=== PATIENT | female | born 1935 | race Caucasian/White ===

== ENCOUNTER 2017-01-02 16:23 | Observation (INO) | payer MEDICARE, OTHER ==
--- NOTE | 2017-01-02 16:49 | EDM.PDOC ---
ED HPI GENERAL MEDICAL PROBLEM - General Chief Complaint: Gastrointestinal Problem Stated Complaint: BLOOD IN STOOL Time Seen by Provider: 01/02/17 16:48 Source of Information: Reports: Patient History Limitations: Reports: No Limitations - History of Present Illness INITIAL COMMENTS - FREE TEXT/NARRATIVE: 81-year-old female presents to the ED reporting that she's had 4 stools today that have been formed but seemed to have blood mixed within. She notices this more when the stool is in the water of the toilet and blood seems to be coming from the stool. I.e. its mixed in. She reports the blood appears to be more maroon in color than bright red. She's not appreciate any clots. She does have some mild left lower quadrant abdominal discomfort. Questionable whether she had fever or chills last night. She has a history of diverticulitis in his had previous 18 inches of her sigmoid colon resected because of diverticular disease. She has had colonoscopies in the past but not for greater than 5 years. Never had any polyps removed. She does take a baby aspirin daily. She does not take much for Motrin or Aleve for arthritis pain. Denies any heartburn or upper GI symptoms. She gives a history of irritable bowel syndrome and states that she can have no bowel some days and some days have up to 6 or 7 bowel movements. Patient gives a history of mostly diarrhea stools. Those today were formed or semi-formed. 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) - Related Data Allergies Allergy/AdvReac Type Severity Reaction Status Date / Time No Known Allergies Allergy Verified 01/02/17 16:47 Home Meds: Home Meds Aspirin [Low Dose Aspirin EC] 81 mg PO DAILY 11/19/13 [History] Hydrochlorothiazide 12.5 mg PO DAILY 11/19/13 [History] Lactobacillus Acidophilus [Probiotic] 1 cap PO DAILY 11/19/13 [History] Metoprolol Succinate [Toprol XL] 25 mg PO DAILY 11/19/13 [History] Docusate Sodium [Colace] 100 mg PO BID PRN 01/02/17 [History] Past Medical History HEENT History: Reports: Allergic Rhinitis Cardiovascular History: Reports: High Cholesterol, Hypertension Gastrointestinal History: Reports: Chronic Diarrhea, Diverticulosis, Hemorrhoids , Irritable Bowel Syndrome Genitourinary History: Reports: Urinary Incontinence, Other (See Below) Other Genitourinary History: Dribbling 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: Musculoskeletal History: Reports: Arthritis, Back Pain, Chronic, Fracture, Neck Pain, Chronic Other Musculoskeletal History: chronic neck pain Neurological History: Reports: Headaches, Chronic Other Neuro History: LOC with the fall - Infectious Disease History Infectious Disease History: Reports: Chicken Pox, Shingles - Past Surgical History HEENT Surgical History: Reports: Cataract Surgery, Other (See Below) GI Surgical History: Reports: Colonoscopy (But not for greater than 5 years.), Other (See Below) (Patient reports that she had 18 inches of her sigmoid colon resected in the past because of diverticulitis.) Female Surgical History: Reports: Hysterectomy, Other (See Below) (Bladder sling procedure.) Musculoskeletal Surgical History: Reports: Other (See Below) Social & Family History - Family History Family Medical History: Noncontributory - Tobacco Use Smoking Status *Q: Never Smoker Second Hand Smoke Exposure: No - Recreational Drug Use Recreational Drug Use: No Drug Use in Last 12 Months: No - Living Situation & Occupation Living situation: Reports: Occupation: Retired ED ROS GENERAL - Review of Systems Review Of Systems: See Below Constitutional: Denies: Fever, Chills, Malaise, Weakness, Fatigue, Decreased Appetite, Weight Loss HEENT: Reports: No Symptoms Respiratory: Reports: No Symptoms Cardiovascular: Reports: No Symptoms Endocrine: Reports: No Symptoms GI/Abdominal: Reports: Abdominal Pain (Perhaps mild left lower quadrant abdominal discomfort.), Hematochezia, Other (Patient was does watch her diet because of irritable bowel syndrome. She has no problems with heartburn or indigestion.) : Reports: Frequency, Incontinence (Both urge and stress components.) Musculoskeletal: Reports: No Symptoms Skin: Reports: No Symptoms Neurological: Reports: No Symptoms Psychiatric: Reports: No Symptoms Hematologic/Lymphatic: Reports: No Symptoms Immunologic: Reports: No Symptoms ED EXAM, GI/ABD - Physical Exam Exam: See Below Exam Limited By: No Limitations General Appearance: Alert, WD/WN, No Apparent Distress, Other (Mildly pallid in appearance.) Eyes: Bilateral: Pale Conjunctiva (Moderate.) Throat/Mouth: Normal Inspection, Normal Lips, Normal Oropharynx Head: Atraumatic, Normocephalic Neck: Normal Inspection, Supple, Non-Tender, Full Range of Motion. No: Lymphadenopathy (L), Lymphadenopathy (R) Respiratory/Chest: No Respiratory Distress, Lungs Clear, Normal Breath Sounds Cardiovascular: Normal Peripheral Pulses, Regular Rate, Rhythm, No Edema, No Gallop, No Murmur, No Rub GI/Abdominal Exam: Normal Bowel Sounds, Soft, Tender (Mildly tender in the distribution of the sigmoid colon her left lower quadrant.). No: Guarding, Rigid, Rebound Back Exam: Other Extremities: Normal Inspection, Normal Range of Motion, Non-Tender, No Pedal Edema, Normal Capillary Refill, Other (Has decreased color in her peralta hand creases) Neurological: Alert, Oriented, CN II-XII Intact, Normal Cognition Psychiatric: Normal Affect, Normal Mood Skin Exam: Warm, Dry, Intact, Pallor ED ABDOMINAL/GI PROCEDURES - Additional/Other Procedure(s) Procedure(s) (Free Text): Rigid sigmoidoscopy carried out only up to 10 cm. Immediately came in contact with dark black melena stool. Second attempt after cleansing the scope ran into further melena stool at the 10 and 12 cm andi. I could not see anything else. Course - Vital Signs Last Recorded V/S: Last Vital Signs Temp 36.6 C 01/02/17 16:46 Pulse 95 01/02/17 16:46 Resp 18 01/02/17 16:46 BP 152/74 H 01/02/17 16:46 Pulse Ox 95 01/02/17 16:46 - Orders/Labs/Meds Orders: Active Orders 24 hr Category Date Time Status Hemoccult [Fecal Occult Blood Collection] [RC] Care 01/02/17 17:44 Active ASDIRECTED ABO/RH TYPE [BBK] Stat Lab 01/02/17 17:00 Received Guaiac [OCCULT BLOOD DIAGNOSTIC] [OP] Stat Lab 01/02/17 17:40 Uncollected Sodium Chloride 0.9% [Normal Saline] 1,000 ml Med 01/02/17 17:00 Active IV ASDIRECTED Medication Orders Sodium Chloride (Normal Saline) 1,000 mls @ 100 mls/hr IV ASDIRECTED PAULINA Last Admin: 01/02/17 17:09 Dose: 100 mls/hr Labs: Laboratory Tests 01/02/17 01/02/17 01/02/17 Range/Units 17:00 17:00 17:00 WBC 10.30 H (3.98-10.04) K/mm3 RBC 3.46 L (3.98-5.22) M/mm3 Hgb 10.3 L (11.2-15.7) gm/L Hct 31.1 L (34.1-44.9) % MCV 89.9 (79.4-94.8) fl MCH 29.8 (25.6-32.2) pg MCHC 33.1 (32.2-35.5) g/dl RDW Std Deviation 42.3 (36.4-46.3) fL Plt Count 228 (182-369) K/mm3 MPV 9.5 (9.4-12.3) fl Neutrophils % (Manual) 64 H (40-60) % Band Neutrophils % 0 (0-10) % Lymphocytes % (Manual) 28 (20-40) % Atypical Lymphs % 0 % Monocytes % (Manual) 5 (2-10) % Eosinophils % (Manual) 1 (0.7-5.8) % Basophils % (Manual) 2 H (0.1-1.2) Toxic Granulation Few Platelet Estimate Adequate Plt Morphology Comment Normal Anisocytosis 1+ slight Microcytosis 1+ slight RBC Morph Comment Not Reportable PT 10.5 (8.0-13.0) SECONDS INR 0.97 APTT 22 (22-36) SECONDS Sodium 139 (136-145) mEq/L Potassium 3.9 (3.5-5.1) mEq/L Chloride 102 (98-107) mEq/L Carbon Dioxide 29 (21-32) mEq/L Anion Gap 11.9 (5-15) BUN 45 H (7-18) mg/dL Creatinine 1.0 (0.55-1.02) mg/dL Est Cr Clr Drug Dosing 34.30 mL/min Estimated GFR (MDRD) 53 (>60) mL/min BUN/Creatinine Ratio 45.0 H (14-18) Glucose 102 (83-115) mg/dL Calcium 9.6 (8.5-10.1) mg/dL Total Bilirubin 0.4 (0.2-1.0) mg/dL AST 29 (15-37) U/L ALT 27 (14-59) U/L Alkaline Phosphatase 80 (46-116) U/L Total Protein 7.2 (6.4-8.2) g/dl Albumin 3.9 (3.4-5.0) g/dl Globulin 3.3 gm/dL Albumin/Globulin Ratio 1.2 (1-2) H. pylori IgG Antibody (NEGATIVE) 01/02/17 Range/Units 17:00 WBC (3.98-10.04) K/mm3 RBC (3.98-5.22) M/mm3 Hgb (11.2-15.7) gm/L Hct (34.1-44.9) % MCV (79.4-94.8) fl MCH (25.6-32.2) pg MCHC (32.2-35.5) g/dl RDW Std Deviation (36.4-46.3) fL Plt Count (182-369) K/mm3 MPV (9.4-12.3) fl Neutrophils % (Manual) (40-60) % Band Neutrophils % (0-10) % Lymphocytes % (Manual) (20-40) % Atypical Lymphs % % Monocytes % (Manual) (2-10) % Eosinophils % (Manual) (0.7-5.8) % Basophils % (Manual) (0.1-1.2) Toxic Granulation Platelet Estimate Plt Morphology Comment Anisocytosis Microcytosis RBC Morph Comment PT (8.0-13.0) SECONDS INR APTT (22-36) SECONDS Sodium (136-145) mEq/L Potassium (3.5-5.1) mEq/L Chloride (98-107) mEq/L Carbon Dioxide (21-32) mEq/L Anion Gap (5-15) BUN (7-18) mg/dL Creatinine (0.55-1.02) mg/dL Est Cr Clr Drug Dosing mL/min Estimated GFR (MDRD) (>60) mL/min BUN/Creatinine Ratio (14-18) Glucose (83-115) mg/dL Calcium (8.5-10.1) mg/dL Total Bilirubin (0.2-1.0) mg/dL AST (15-37) U/L ALT (14-59) U/L Alkaline Phosphatase (46-116) U/L Total Protein (6.4-8.2) g/dl Albumin (3.4-5.0) g/dl Globulin gm/dL Albumin/Globulin Ratio (1-2) H. pylori IgG Antibody Negative (NEGATIVE) Meds: Medications Generic Name Dose Route Start Last Admin Trade Name Freq PRN Reason Stop Dose Admin Sodium Chloride 1,000 mls @ 100 mls/hr 01/02/17 17:00 01/02/17 17:09 Normal Saline IV 100 mls/hr ASDIRECTED PAULINA Administration Discontinued Medications Generic Name Dose Route Start Last Admin Trade Name Freq PRN Reason Stop Dose Admin Lidocaine HCl 10 ml 01/02/17 17:14 01/02/17 17:21 Xylocaine 2% Jelly MUCMEM 01/02/17 17:15 10 ml ONETIME ONE Administration Lidocaine HCl Confirm 01/02/17 17:19 01/02/17 17:20 Xylocaine 2% Jelly Administered 01/02/17 17:20 Not Given Dose 10 ml .ROUTE .[facility] ONE - Radiology Interpretation Free Text/Narrative:: 81-year-old female presents to the ED for evaluation of 4 stools that she has passed a day but seemed to contain blood. This is noted more when the stool is in the toilet and blood is leaking from the stool itself. It is dark in color suggesting that the bleeding is coming from a higher GI origin in the rectum. She doesn't have any symptoms of dyspepsia. She does take a baby aspirin every day. She has had a history of diverticulitis but doesn't really have any pain. Questionable whether she had a fever last night. He is afebrile at this time. Appetite remains good. On examination she does appear to be mildly anemic with pallor of the lower blood for margins and hand creases. Plan routine labs to be performed type and screen as well. Will obtain consent for rigid sigmoidoscopy. - Re-Assessments/Exams Free Text/Narrative Re-Assessment/Exam: 01/02/17 17:41 rigid sigmoidoscopy carried out and identified dark black melena stool on both occasions. I could get not get farther than 10 cm into the colon before encountering significant amount of melena stool. The colon wall is coated with melena dark black stool therefore the procedure was aborted. Stool was tested and is strongly guaiac positive. 01/02/17 18:01 labs are back. White count is 10.30 with 64% neutrophils and no bands. Hemoglobin is 10.3. Hematocrit is 31.1. MCV is normal at 89.9. Pelvis is normal 220,000. Coags are all normal. Sodium 139 potassium 3.9. BUN is mildly elevated at 45 suggesting an upper GI source of bleeding. Creatinine is 1.0. Liver function and renal function otherwise normal. H. pylori was negative. Patient will require admission to the hospital for monitoring for GI blood loss and assessment of its source. She will require upper and potentially lower GI endoscopy to sort out source of blood loss. Will speak to hospitalist in this regard. 01/02/17 18:[address] Ervin and he has accepted care of this patient. She will therefore be admitted to the hospital. MCG's are being sorted out as to whether she meets observation criteria or inpatient criteria. BP is currently 123/51. Will give her 40 mg of Protonix IV. Departure - Departure Time of Disposition: 18:15 Disposition: Home, Self-Care 01 Condition: Fair Clinical Impression: Gastrointestinal hemorrhage Qualifiers: GI bleed type/associated pathology: melena Qualified Code(s): K92.1 - Melena Anemia Qualifiers: Anemia type: other cause - Discharge Information Forms: ED Department Discharge - My Orders Last 24 Hours: My Active Orders 01/02/17 17:00 ABO/RH TYPE [BBK] Stat Sodium Chloride 0.9% [Normal Saline] 1,000 ml IV ASDIRECTED 01/02/17 17:40 Guaiac [OCCULT BLOOD DIAGNOSTIC] [OP] Stat 01/02/17 17:44 Hemoccult [Fecal Occult Blood Collection] [RC] ASDIRECTED - Assessment/Plan Last 24 Hours: My Active Orders 01/02/17 17:00 ABO/RH TYPE [BBK] Stat Sodium Chloride 0.9% [Normal Saline] 1,000 ml IV ASDIRECTED 01/02/17 17:40 Guaiac [OCCULT BLOOD DIAGNOSTIC] [OP] Stat 01/02/17 17:44 Hemoccult [Fecal Occult Blood Collection] [RC] ASDIRECTED
[2017-01-02] MEDS ORDERED: Sodium Chloride 0.9% 1,000 ML IV SCH (17:00)
[2017-01-02] MEDS ORDERED: Lidocaine 2% Jelly 10 ML Urojet MUCMEM ONE (17:14)
[2017-01-02] MEDS ORDERED: Lidocaine 2% Jelly 10 ML Urojet ONE (17:19)
[2017-01-02] MEDS ORDERED: Pantoprazole 40 MG Vial IVPUSH ONE (18:14)
--- NOTE | 2017-01-02 18:45 | PCM.HP ---
H&P History of Present Illness - General Date of Service: 01/02/17 Admit Problem/Dx: Admission Diagnosis/Problem Admission Diagnosis/Problem Gastrointestinal hemorrhage with melena Source of Information: Patient, Family, Old Records, Provider, RN Notes Reviewed , Significant Other History Limitations: Reports: No Limitations - History of Present Illness Initial Comments - Free Text/Narative: This is an 81 year old elderly white female with past medical history of hypertension hyperlipidemia, allergic rhinitis, chronic diarrhea, diverticulosis , hemorrhoids, irritable bowel syndrome, urinary frequency, urinary incontinence , DJD/osteoarthritis, chronic neck pain, chronic headaches, who presents to the emergency department with complaints of black tarry stools mixed with blood. She denies any previous history in the past. She denies any mucus or blood clots. She denies having nausea or vomiting. No fever or chills. Patient carries a history of diverticulosis in which she underwent colonic resection in the past. She has not had any issues with her bowel in the past except for chronic diarrhea. Her last endoscopy is within the last 5 years. Patient is not on anticoagulation but takes low-dose aspirin. She denies taking NSAIDs for her chronic arthritis. She denies any history of gastritis, PUD, or heartburn. Her initial workup in emergency department shows a CBC remarkable for WBC of 10.30, RBC of 3.46, hemoglobin 10.3, and hematocrit of 31.1. Her chemistry is fairly unremarkable. Her H pylori screening is negative. Patient is being admitted for GI bleed with melena. She is DNR/DNI. - Related Data Allergies/Adverse Reactions: Allergies Allergy/AdvReac Type Severity Reaction Status Date / Time No Known Allergies Allergy Verified 01/02/17 16:47 Home Medications: Home Meds Aspirin [Low Dose Aspirin EC] 81 mg PO DAILY 11/19/13 [History] Hydrochlorothiazide 12.5 mg PO DAILY 11/19/13 [History] Lactobacillus Acidophilus [Probiotic] 1 cap PO DAILY 11/19/13 [History] Metoprolol Succinate [Toprol XL] 25 mg PO DAILY 11/19/13 [History] Docusate Sodium [Colace] 100 mg PO BID PRN 01/02/17 [History] Past Medical History HEENT History: Reports: Allergic Rhinitis Cardiovascular History: Reports: High Cholesterol, Hypertension Gastrointestinal History: Reports: Chronic Diarrhea, Diverticulosis, Hemorrhoids , Irritable Bowel Syndrome Genitourinary History: Reports: Urinary Incontinence, Other (See Below) Other Genitourinary History: 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: Musculoskeletal History: Reports: Arthritis, Back Pain, Chronic, Fracture, Neck Pain, Chronic Other Musculoskeletal History: chronic neck pain Neurological History: Reports: Headaches, Chronic Other Neuro History: LOC with the fall - Infectious Disease History Infectious Disease History: Reports: Chicken Pox, Shingles - Past Surgical History HEENT Surgical History: Reports: Cataract Surgery, Other (See Below) GI Surgical History: Reports: Colonoscopy (But not for greater than 5 years.), Other (See Below) (Patient reports that she had 18 inches of her sigmoid colon resected in the past because of diverticulitis.) Female Surgical History: Reports: Hysterectomy, Other (See Below) (Bladder sling procedure.) Musculoskeletal Surgical History: Reports: Other (See Below) Social & Family History - Family History Family Medical History: Noncontributory - Tobacco Use Smoking Status *Q: Never Smoker Second Hand Smoke Exposure: No - Caffeine Use Caffeine Use: Reports: Coffee - Recreational Drug Use Recreational Drug Use: No Drug Use in Last 12 Months: No - Living Situation & Occupation Living situation: Reports: Occupation: Retired H&P Review of Systems - Review of Systems: Review Of Systems: See Below General: Denies: Fever, Chills, Malaise, Weakness, Fatigue, Decreased Appetite, Weight Loss HEENT: Reports: No Symptoms Pulmonary: Denies: Shortness of Breath Cardiovascular: Denies: Chest Pain Gastrointestinal: Reports: Black Stool, Hematochezia, Melena. Denies: Abdominal Pain, Anorexia, Constipation, Decreased Appetite, Distension, Hematemesis, Mucous in Stool, Nausea, Vomiting Genitourinary: Reports: Frequency, Incontinence Musculoskeletal: Reports: Neck Pain Skin: Denies: Cyanosis, Jaundice, Pallor, Bruising, Rash, Erythema, Change in Color Psychiatric: Denies: Depression, Anxiety, Hallucinations, Suicidal Ideation, Homicidal Ideation Neurological: Reports: Gait Disturbance. Denies: Confusion, Difficulty Walking , Weakness Hematologic/Lymphatic: Reports: No Symptoms Immunologic: Reports: No Symptoms Exam - Exam Exam: See Below - Vital Signs Vital Signs: Last Vital Signs Temp 36.6 C 01/02/17 16:46 Pulse 95 01/02/17 16:46 Resp 18 01/02/17 16:46 BP 152/74 H 01/02/17 16:46 Pulse Ox 95 01/02/17 16:46 Weight: 57.153 kg - Exam General: Alert, Oriented, Cooperative, Mild Distress HEENT: Conjunctiva Clear, EACs Clear, EOMI, Hearing Intact, Mucosa Moist & [place] , Nares Patent, Normal Nasal Septum, Posterior Pharynx Clear, Pupils Equal, Pupils Reactive Neck: Supple, Trachea Midline, +2 Carotid Pulse wo Bruit, Full Range of Motion Lungs: Clear to Auscultation, Normal Respiratory Effort Cardiovascular: Regular Rate, Regular Rhythm GI/Abdominal Exam: Normal Bowel Sounds, Soft, Non-Tender, No Organomegaly, No Distention, No Abnormal Bruit, No Mass (Female) Exam: Deferred Rectal (Female) Exam: Deferred Back Exam: Normal Inspection, Decreased Range of Motion Extremities: Normal Inspection, Normal Range of Motion, Non-Tender, No Pedal Edema, Normal Capillary Refill Peripheral Pulses: 2+: Posterior Tibial (L), Posterior Tibial (R), Dorsalis Pedis (L), Dorsalis Pedis (R) Skin: Warm, Dry, Intact Neuro Extensive - Mental Status: Oriented x3, Normal Cognition, Memory Intact Neuro Extensive - Motor, Sensory, Reflexes: CN II-XII Intact, Normal Gait Psychiatric: Alert, Normal Affect, Normal Mood - Patient Data Lab Results Last 24 hrs: Laboratory Results - last 24 hr 01/02/17 01/02/17 01/02/17 Range/Units 17:00 17:00 17:00 WBC 10.30 H (3.98-10.04) K/mm3 RBC 3.46 L (3.98-5.22) M/mm3 Hgb 10.3 L (11.2-15.7) gm/L Hct 31.1 L (34.1-44.9) % MCV 89.9 (79.4-94.8) fl MCH 29.8 (25.6-32.2) pg MCHC 33.1 (32.2-35.5) g/dl RDW Std Deviation 42.3 (36.4-46.3) fL Plt Count 228 (182-369) K/mm3 MPV 9.5 (9.4-12.3) fl Neutrophils % (Manual) 64 H (40-60) % Band Neutrophils % 0 (0-10) % Lymphocytes % (Manual) 28 (20-40) % Atypical Lymphs % 0 % Monocytes % (Manual) 5 (2-10) % Eosinophils % (Manual) 1 (0.7-5.8) % Basophils % (Manual) 2 H (0.1-1.2) Toxic Granulation Few Platelet Estimate Adequate Plt Morphology Comment Normal Anisocytosis 1+ slight Microcytosis 1+ slight RBC Morph Comment Not Reportable PT 10.5 (8.0-13.0) SECONDS INR 0.97 APTT 22 (22-36) SECONDS Sodium 139 (136-145) mEq/L Potassium 3.9 (3.5-5.1) mEq/L Chloride 102 (98-107) mEq/L Carbon Dioxide 29 (21-32) mEq/L Anion Gap 11.9 (5-15) BUN 45 H (7-18) mg/dL Creatinine 1.0 (0.55-1.02) mg/dL Est Cr Clr Drug Dosing 34.30 mL/min Estimated GFR (MDRD) 53 (>60) mL/min BUN/Creatinine Ratio 45.0 H (14-18) Glucose 102 (83-115) mg/dL Calcium 9.6 (8.5-10.1) mg/dL Total Bilirubin 0.4 (0.2-1.0) mg/dL AST 29 (15-37) U/L ALT 27 (14-59) U/L Alkaline Phosphatase 80 (46-116) U/L Total Protein 7.2 (6.4-8.2) g/dl Albumin 3.9 (3.4-5.0) g/dl Globulin 3.3 gm/dL Albumin/Globulin Ratio 1.2 (1-2) H. pylori IgG Antibody (NEGATIVE) 01/02/17 Range/Units 17:00 WBC (3.98-10.04) K/mm3 RBC (3.98-5.22) M/mm3 Hgb (11.2-15.7) gm/L Hct (34.1-44.9) % MCV (79.4-94.8) fl MCH (25.6-32.2) pg MCHC (32.2-35.5) g/dl RDW Std Deviation (36.4-46.3) fL Plt Count (182-369) K/mm3 MPV (9.4-12.3) fl Neutrophils % (Manual) (40-60) % Band Neutrophils % (0-10) % Lymphocytes % (Manual) (20-40) % Atypical Lymphs % % Monocytes % (Manual) (2-10) % Eosinophils % (Manual) (0.7-5.8) % Basophils % (Manual) (0.1-1.2) Toxic Granulation Platelet Estimate Plt Morphology Comment Anisocytosis Microcytosis RBC Morph Comment PT (8.0-13.0) SECONDS INR APTT (22-36) SECONDS Sodium (136-145) mEq/L Potassium (3.5-5.1) mEq/L Chloride (98-107) mEq/L Carbon Dioxide (21-32) mEq/L Anion Gap (5-15) BUN (7-18) mg/dL Creatinine (0.55-1.02) mg/dL Est Cr Clr Drug Dosing mL/min Estimated GFR (MDRD) (>60) mL/min BUN/Creatinine Ratio (14-18) Glucose (83-115) mg/dL Calcium (8.5-10.1) mg/dL Total Bilirubin (0.2-1.0) mg/dL AST (15-37) U/L ALT (14-59) U/L Alkaline Phosphatase (46-116) U/L Total Protein (6.4-8.2) g/dl Albumin (3.4-5.0) g/dl Globulin gm/dL Albumin/Globulin Ratio (1-2) H. pylori IgG Antibody Negative (NEGATIVE) Result Diagrams: 01/02/17 22:20 01/02/17 17:00 *Q Meaningful Use (ADM) - VTE *Q VTE Criteria *Q: - Stroke *Q Stroke Criteria *Q: - AMI *Q AMI Criteria *Q: Problem List Initiated/Reviewed/Updated: Yes Orders Last 24hrs: Active Orders 24 hr Category Date Time Status Admission Status [Patient Status] [ADT] Routine ADT 01/02/17 18:23 Active Hemoccult [Fecal Occult Blood Collection] [RC] Care 01/02/17 17:44 Active ASDIRECTED ABO/RH TYPE [BBK] Stat Lab 01/02/17 17:00 Received Sodium Chloride 0.9% [Normal Saline] 1,000 ml Med 01/02/17 17:00 Active IV ASDIRECTED Medication Orders Sodium Chloride (Normal Saline) 1,000 mls @ 100 mls/hr IV ASDIRECTED PAULINA Last Admin: 01/02/17 17:09 Dose: 100 mls/hr Assessment/Plan Comment:: Assessment/Plan: Acute: GI Bleed with Melena - H. Pylori negative - Risk factors: ASA, Hemorrhoids, Diverticulosis, IBS, and Hx/o Bowel Resection - Suspected PUD - Hgb is stable at 10.3 - No more episode - NPO except ice chips and sips of water +/- oral meds - PPI and Carafate - Monitor H/H Chronic: HTN HLD Diverticulosis IBS Diarrhea Hemorroids Urinary Incontinence OA/DJD Neck Pain Headaches Hx/O Bowel Resection Plan: Admit to OBS floor Monitor H/H Resume Home Meds except ASA No Anticoags SW/CM for d/c planning Code status: DNR/DNI If stable, d/c in am
[2017-01-02] MEDS ORDERED: HYDROmorphone 0.5 MG/0.5 ML Syringe IVPUSH PRN (18:53)
[2017-01-02] MEDS ORDERED: Acetaminophen 325 MG Tab PO PRN (18:53)
[2017-01-02] MEDS ORDERED: Acetaminophen/HYDROcodone 325-5 MG Tab PO PRN (18:53)
[2017-01-02] MEDS ORDERED: Docusate Sodium 100 MG Cap PO PRN (18:53)
[2017-01-02] MEDS ORDERED: Polyethylene Glycol 3350 Powder 17 GM Packet PO PRN (18:53)
[2017-01-02] MEDS ORDERED: LORazepam 2 MG/ML MDV IV PRN (18:53)
[2017-01-02] MEDS ORDERED: Albuterol/Ipratropium 3.0-0.5 MG/3 ML Neb Soln NEB PRN (18:53)
[2017-01-02] MEDS ORDERED: Promethazine 12.5 MG in Sodium Chloride 0.9% 50 ML IV PRN (18:53)
[2017-01-02] MEDS ORDERED: Bisacodyl 5 MG Tab PO PRN (18:53)
[2017-01-02] MEDS ORDERED: Ondansetron 4 MG/2 ML SDV IV PRN (18:53)
[2017-01-02] MEDS ORDERED: Temazepam 7.5 MG Cap PO PRN (18:53)
[2017-01-02] MEDS ORDERED: hydrALAZINE 20 MG/ML SDV IVPUSH PRN (18:58)
[2017-01-02] MEDS ORDERED: LORazepam 2 MG/ML MDV IVPUSH PRN (18:58)
[2017-01-02] MEDS ORDERED: Metoprolol Tartrate 5 MG/5 ML SDV IVPUSH PRN (18:58)
[2017-01-02] MEDS ORDERED: Dextrose 5%-0.9% NaCl 1,000 ML IV SCH (19:00)
[2017-01-02] MEDS: Sucralfate 1 GM Tab PO SCH (22:17)
[2017-01-03] MEDS: Dextrose 5%-0.45% NaCl 1,000 ML IV SCH ×2 (00:11→21:32)
[2017-01-03] MEDS: Sucralfate 1 GM Tab PO SCH ×4 (06:44→21:32)
--- NOTE | 2017-01-03 07:41 | PCM.PN ---
- General Info Date of Service: 01/03/17 Admission Dx/Problem (Free Text): Admission Diagnosis/Problem Admission Diagnosis/Problem Gastrointestinal hemorrhage with melena Subjective Update: Follow Up Functional Status: Reports: Pain Controlled, Ambulating, Urinating. Denies: New Symptoms - Review of Systems General: Denies: Fever, Weakness, Fatigue, Malaise, Chills HEENT: Reports: No Symptoms Pulmonary: Denies: Shortness of Breath Cardiovascular: Denies: Chest Pain Gastrointestinal: Reports: Flatus. Denies: Abdominal Pain, Diarrhea, Hematochezia, Melena, Nausea, Vomiting Genitourinary: Reports: No Symptoms Musculoskeletal: Reports: Neck Pain Skin: Denies: Cyanosis, Rash Neurological: Denies: Confusion, Dizziness, Difficulty Walking, Weakness, Gait Disturbance Psychiatric: Denies: Depression, Anxiety, Hallucinations Systems Review Comment:: No overnight or acute issues. Her Hgb this morning is 8.7. No report of melena or hematochezia. She seems to be doing just fine. - Patient Data Vitals - Most Recent: Last Vital Signs Temp 36.7 C 01/03/17 06:47 Pulse 84 01/03/17 06:47 Resp 22 H 01/03/17 06:47 BP 119/56 L 01/03/17 06:47 Pulse Ox 92 L 01/03/17 06:47 Weight - Most Recent: 53.479 kg I&O - Last 24 Hours: Intake & Output 01/02/17 01/03/17 01/03/17 22:59 06:59 14:59 Intake Total 217 Output Total 1500 Balance -1283 Lab Results Last 24 Hours: Laboratory Results - last 24 hr 01/02/17 01/03/17 01/03/17 Range/Units 22:20 02:20 05:51 WBC (3.98-10.04) K/mm3 RBC (3.98-5.22) M/mm3 Hgb 9.4 L (11.2-15.7) gm/L Hct 28.6 L (34.1-44.9) % MCV (79.4-94.8) fl MCH (25.6-32.2) pg MCHC (32.2-35.5) g/dl RDW Std Deviation (36.4-46.3) fL Plt Count (182-369) K/mm3 MPV (9.4-12.3) fl Neut % (Auto) (34.0-71.1) % Lymph % (Auto) (19.3-51.7) % [place] % (Auto) (4.7-12.5) % Eos % (Auto) (0.7-5.8) Baso % (Auto) (0.1-1.2) % Neut # (Auto) (1.56-6.13) K/mm3 Lymph # (Auto) (1.18-3.74) K/mm3 [place] # (Auto) (0.24-0.36) K/mm3 Eos # (Auto) (0.04-0.36) K/mm3 Baso # (Auto) (0.01-0.08) K/mm3 Sodium 141 (136-145) mEq/L Potassium 4.1 (3.5-5.1) mEq/L Chloride 107 (98-107) mEq/L Carbon Dioxide 30 (21-32) mEq/L Anion Gap 8.1 (5-15) BUN 26 H (7-18) mg/dL Creatinine 0.8 (0.55-1.02) mg/dL Est Cr Clr Drug Dosing 42.88 mL/min Estimated GFR (MDRD) > 60 (>60) mL/min BUN/Creatinine Ratio 32.5 H (14-18) Glucose 108 (83-115) mg/dL Calcium 9.0 (8.5-10.1) mg/dL Magnesium 1.7 L (1.8-2.4) mg/dl MRSA (PCR) Negative 01/03/17 Range/Units 05:51 WBC 5.77 (3.98-10.04) K/mm3 RBC 2.99 L (3.98-5.22) M/mm3 Hgb 8.7 L (11.2-15.7) gm/L Hct 27.0 L (34.1-44.9) % MCV 90.3 (79.4-94.8) fl MCH 29.1 (25.6-32.2) pg MCHC 32.2 (32.2-35.5) g/dl RDW Std Deviation 42.1 (36.4-46.3) fL Plt Count 189 (182-369) K/mm3 MPV 9.9 (9.4-12.3) fl Neut % (Auto) 56.1 (34.0-71.1) % Lymph % (Auto) 33.1 (19.3-51.7) % [place] % (Auto) 8.7 (4.7-12.5) % Eos % (Auto) 1.6 (0.7-5.8) Baso % (Auto) 0.3 (0.1-1.2) % Neut # (Auto) 3.24 (1.56-6.13) K/mm3 Lymph # (Auto) 1.91 (1.18-3.74) K/mm3 [place] # (Auto) 0.50 H (0.24-0.36) K/mm3 Eos # (Auto) 0.09 (0.04-0.36) K/mm3 Baso # (Auto) 0.02 (0.01-0.08) K/mm3 Sodium (136-145) mEq/L Potassium (3.5-5.1) mEq/L Chloride (98-107) mEq/L Carbon Dioxide (21-32) mEq/L Anion Gap (5-15) BUN (7-18) mg/dL Creatinine (0.55-1.02) mg/dL Est Cr Clr Drug Dosing mL/min Estimated GFR (MDRD) (>60) mL/min BUN/Creatinine Ratio (14-18) Glucose (83-115) mg/dL Calcium (8.5-10.1) mg/dL Magnesium (1.8-2.4) mg/dl MRSA (PCR) Med Orders - Current: Current Medications Acetaminophen (Tylenol) 650 mg PO Q4H PRN PRN Reason: Pain (Mild 1-3)/fever Hydrocodone Bitart/Acetaminophen ([place] 325-5 Mg) 1 tab PO Q4H PRN PRN Reason: Pain (moderate 4-6) Albuterol/Ipratropium (Duoneb 3.0-0.5 Mg/3 Ml) 3 ml NEB Q4HRRT PRN PRN Reason: Shortness Of Breath/wheezing Bisacodyl (Dulcolax) 5 mg PO DAILY PRN PRN Reason: Constipation Docusate Sodium (Colace) 100 mg PO BID PRN PRN Reason: Constipation Hydralazine HCl (Apresoline) 10 mg IVPUSH Q4H PRN PRN Reason: Hypertension Hydromorphone HCl (Dilaudid) 0.25 mg IVPUSH Q2H PRN PRN Reason: Pain (severe 7-10) Dextrose/Sodium Chloride (Dextrose 5%-1/2 Ns) 1,000 mls @ 50 mls/hr IV ASDIRECTED [facility] Last Admin: 01/03/17 00:11 Dose: 50 mls/hr Promethazine HCl 12.5 mg/ (Sodium Chloride) 50.5 mls @ 100 mls/hr IV Q6H PRN PRN Reason: Nausea/Vomiting Lorazepam (Ativan) 0.25 mg IV Q6H PRN PRN Reason: Anxiety Lorazepam (Ativan) 2 mg IVPUSH Q4H PRN PRN Reason: Seizures Metoprolol Succinate (Toprol Xl) 25 mg PO DAILY [facility] Metoprolol Tartrate (Lopressor) 5 mg IVPUSH Q4H PRN PRN Reason: Tachycardia Non-Formulary Medication (Hydrochlorothiazide [Hydrochlorothiazide]) 12.5 mg PO DAILY [facility] Non-Formulary Medication (Lactobacillus Acidophilus [Probiotic]) 1 cap PO DAILY [facility] Ondansetron HCl (Zofran) 4 mg IV Q6H PRN PRN Reason: Nausea/Vomiting Pantoprazole Sodium (Protonix Iv) 40 mg IVPUSH Q12H [facility] Polyethylene Glycol (Miralax) 17 gm PO DAILY PRN PRN Reason: Constipation Sucralfate (Carafate) 1 gm PO QIDACANDBED [facility] Last Admin: 01/03/17 06:44 Dose: 1 gm Temazepam (Restoril) 7.5 mg PO BEDTIME PRN PRN Reason: Sleep Discontinued Medications Sodium Chloride (Normal Saline) 1,000 mls @ 100 mls/hr IV ASDIRECTED [facility] Last Admin: 01/02/17 17:09 Dose: 100 mls/hr Dextrose/Sodium Chloride (Dextrose 5%-Normal Saline) 1,000 mls @ 100 mls/hr IV ASDIRECTED [facility] Lidocaine HCl (Xylocaine 2% Jelly) 10 ml MUCMEM ONETIME ONE Stop: 01/02/17 17:15 Last Admin: 01/02/17 17:21 Dose: 10 ml Lidocaine HCl (Xylocaine 2% Jelly) Confirm Administered Dose 10 ml .ROUTE .[facility] ONE Stop: 01/02/17 17:20 Last Admin: 01/02/17 17:20 Dose: Not Given Pantoprazole Sodium (Protonix Iv) 40 mg IVPUSH ONETIME ONE Stop: 01/02/17 18:15 Last Admin: 01/02/17 18:26 Dose: 40 mg - Exam General: Alert, Oriented, Cooperative, No Acute Distress HEENT: Pupils Equal, Pupils Reactive, EOMI, Mucous Membr. Moist/[place] Neck: Supple, Trachea Midline, No JVD, No Thyromegaly Lungs: Clear to Auscultation, Normal Respiratory Effort Cardiovascular: Regular Rate, Regular Rhythm GI/Abdominal Exam: Normal Bowel Sounds, Soft, Non-Tender, No Organomegaly, No Distention, No Abnormal Bruit, No Mass (Female) Exam: Deferred Back Exam: Normal Inspection, Decreased Range of Motion Extremities: Normal Inspection, Normal Range of Motion, Non-Tender, No Pedal Edema, Normal Capillary Refill Peripheral Pulses: 2+: Dorsalis Pedis (L), Dorsalis Pedis (R) Skin: Warm, Dry, Intact Neurological: No New Focal Deficit Psy/Mental Status: Alert, Normal Affect, Normal Mood - Problem List Review Problem List Initiated/Reviewed/Updated: Yes - Plan Plan:: Assessment/Plan: Acute: GI Bleed with Melena - H. Pylori negative - Risk factors: ASA, Hemorrhoids, Diverticulosis, IBS, and Hx/o Bowel Resection - Suspected PUD - Hgb was 10.3 ---> now 8.7 - No more episode - NPO except ice chips and sips of water +/- oral meds - PPI and Carafate - Monitor H/H - Consulted Dr. Garcia for further eval, patient okayed Hypomagnesemia - Mg of 1.7 - Pharmacy to replete and monitor Chronic: HTN HLD Diverticulosis IBS Diarrhea Hemorroids Urinary Incontinence OA/DJD Neck Pain Headaches Hx/O Bowel Resection Plan: She is clinically stable Monitor H/H No Anticoags SW/CM for d/c planning Code status: DNR/DNI
[2017-01-03] MEDS ORDERED: Diphtheria,Pertussis(Acell),Tetanus Vaccine 0.5 ML SDV IM ONE (08:31)
[2017-01-03] MEDS ORDERED: Pantoprazole 40 MG Vial IVPUSH SCH (09:00)
[2017-01-03] MEDS: Saccharomyces Boulardii (Probiotic) 250 MG Cap PO SCH (10:48)
[2017-01-03] MEDS: METOPROLOL SUCCINATE 25 MG PO SCH (10:53)
[2017-01-03] MEDS ORDERED: Polyethylene Glycol/Electrolytes 4,000 ML Bottle PO ONE ×2 (14:43→17:00)
--- NOTE | 2017-01-03 14:46 | PCM.CONSN ---
- General Info Date of Service: 01/03/17 - Patient Data Vitals - Most Recent: Last Vital Signs Temp 98.8 F 01/03/17 12:40 Pulse 75 01/03/17 12:40 Resp 16 01/03/17 12:40 BP 125/75 01/03/17 12:40 Pulse Ox 91 L 01/03/17 12:40 Weight - Most Recent: 53.479 kg I&O - Last 24 Hours: Intake & Output 01/02/17 01/03/17 01/03/17 23:59 07:59 15:59 Intake Total 217 Output Total 1500 Balance -1283 Lab Results Last 24 Hours: Laboratory Results - last 24 hr 01/02/17 01/03/17 01/03/17 Range/Units 22:20 02:20 05:51 WBC (3.98-10.04) K/mm3 RBC (3.98-5.22) M/mm3 Hgb 9.4 L (11.2-15.7) gm/L Hct 28.6 L (34.1-44.9) % MCV (79.4-94.8) fl MCH (25.6-32.2) pg MCHC (32.2-35.5) g/dl RDW Std Deviation (36.4-46.3) fL Plt Count (182-369) K/mm3 MPV (9.4-12.3) fl Neut % (Auto) (34.0-71.1) % Lymph % (Auto) (19.3-51.7) % [place] % (Auto) (4.7-12.5) % Eos % (Auto) (0.7-5.8) Baso % (Auto) (0.1-1.2) % Neut # (Auto) (1.56-6.13) K/mm3 Lymph # (Auto) (1.18-3.74) K/mm3 [place] # (Auto) (0.24-0.36) K/mm3 Eos # (Auto) (0.04-0.36) K/mm3 Baso # (Auto) (0.01-0.08) K/mm3 Sodium 141 (136-145) mEq/L Potassium 4.1 (3.5-5.1) mEq/L Chloride 107 (98-107) mEq/L Carbon Dioxide 30 (21-32) mEq/L Anion Gap 8.1 (5-15) BUN 26 H (7-18) mg/dL Creatinine 0.8 (0.55-1.02) mg/dL Est Cr Clr Drug Dosing 42.88 mL/min Estimated GFR (MDRD) > 60 (>60) mL/min BUN/Creatinine Ratio 32.5 H (14-18) Glucose 108 (83-115) mg/dL Calcium 9.0 (8.5-10.1) mg/dL Magnesium 1.7 L (1.8-2.4) mg/dl MRSA (PCR) Negative 01/03/17 Range/Units 05:51 WBC 5.77 (3.98-10.04) K/mm3 RBC 2.99 L (3.98-5.22) M/mm3 Hgb 8.7 L (11.2-15.7) gm/L Hct 27.0 L (34.1-44.9) % MCV 90.3 (79.4-94.8) fl MCH 29.1 (25.6-32.2) pg MCHC 32.2 (32.2-35.5) g/dl RDW Std Deviation 42.1 (36.4-46.3) fL Plt Count 189 (182-369) K/mm3 MPV 9.9 (9.4-12.3) fl Neut % (Auto) 56.1 (34.0-71.1) % Lymph % (Auto) 33.1 (19.3-51.7) % [place] % (Auto) 8.7 (4.7-12.5) % Eos % (Auto) 1.6 (0.7-5.8) Baso % (Auto) 0.3 (0.1-1.2) % Neut # (Auto) 3.24 (1.56-6.13) K/mm3 Lymph # (Auto) 1.91 (1.18-3.74) K/mm3 [place] # (Auto) 0.50 H (0.24-0.36) K/mm3 Eos # (Auto) 0.09 (0.04-0.36) K/mm3 Baso # (Auto) 0.02 (0.01-0.08) K/mm3 Sodium (136-145) mEq/L Potassium (3.5-5.1) mEq/L Chloride (98-107) mEq/L Carbon Dioxide (21-32) mEq/L Anion Gap (5-15) BUN (7-18) mg/dL Creatinine (0.55-1.02) mg/dL Est Cr Clr Drug Dosing mL/min Estimated GFR (MDRD) (>60) mL/min BUN/Creatinine Ratio (14-18) Glucose (83-115) mg/dL Calcium (8.5-10.1) mg/dL Magnesium (1.8-2.4) mg/dl MRSA (PCR) Med Orders - Current: Current Medications Acetaminophen (Tylenol) 650 mg PO Q4H PRN PRN Reason: Pain (Mild 1-3)/fever Hydrocodone Bitart/Acetaminophen ([place] 325-5 Mg) 1 tab PO Q4H PRN PRN Reason: Pain (moderate 4-6) Albuterol/Ipratropium (Duoneb 3.0-0.5 Mg/3 Ml) 3 ml NEB Q4HRRT PRN PRN Reason: Shortness Of Breath/wheezing Bisacodyl (Dulcolax) 5 mg PO DAILY PRN PRN Reason: Constipation Docusate Sodium (Colace) 100 mg PO BID PRN PRN Reason: Constipation Hydralazine HCl (Apresoline) 10 mg IVPUSH Q4H PRN PRN Reason: Hypertension Hydromorphone HCl (Dilaudid) 0.25 mg IVPUSH Q2H PRN PRN Reason: Pain (severe 7-10) Dextrose/Sodium Chloride (Dextrose 5%-1/2 Ns) 1,000 mls @ 50 mls/hr IV ASDIRECTED [facility] Last Admin: 01/03/17 00:11 Dose: 50 mls/hr Promethazine HCl 12.5 mg/ (Sodium Chloride) 50.5 mls @ 100 mls/hr IV Q6H PRN PRN Reason: Nausea/Vomiting Lorazepam (Ativan) 0.25 mg IV Q6H PRN PRN Reason: Anxiety Lorazepam (Ativan) 2 mg IVPUSH Q4H PRN PRN Reason: Seizures Metoprolol Tartrate (Lopressor) 5 mg IVPUSH Q4H PRN PRN Reason: Tachycardia Ondansetron HCl (Zofran) 4 mg IV Q6H PRN PRN Reason: Nausea/Vomiting Pantoprazole Sodium (Protonix) 40 mg PO Q12H [facility] Hydrochlorothiazide (12.5 Mg Tabs) 0 each PO DAILY [facility] Last Admin: 01/03/17 10:53 Dose: 12.5 each Metoprolol Succinate (25 Mg Tab.Er) 0 each PO DAILY [facility] Last Admin: 01/03/17 10:53 Dose: 25 each Saccharomyces Boulardii (Florastor) 250 mg PO DAILY [facility] Last Admin: 01/03/17 10:48 Dose: 250 mg Sucralfate (Carafate) 1 gm PO QIDACANDBED [facility] Last Admin: 01/03/17 10:48 Dose: 1 gm Temazepam (Restoril) 7.5 mg PO BEDTIME PRN PRN Reason: Sleep Discontinued Medications Diphtheria/Tetanus/Acell Pertussis (Adacel) 0.5 ml IM .ONCE ONE Stop: 01/03/17 08:32 Sodium Chloride (Normal Saline) 1,000 mls @ 100 mls/hr IV ASDIRECTED [facility] Last Admin: 01/02/17 17:09 Dose: 100 mls/hr Dextrose/Sodium Chloride (Dextrose 5%-Normal Saline) 1,000 mls @ 100 mls/hr IV ASDIRECTED [facility] Lidocaine HCl (Xylocaine 2% Jelly) 10 ml MUCMEM ONETIME ONE Stop: 01/02/17 17:15 Last Admin: 01/02/17 17:21 Dose: 10 ml Lidocaine HCl (Xylocaine 2% Jelly) Confirm Administered Dose 10 ml .ROUTE .[facility] ONE Stop: 01/02/17 17:20 Last Admin: 01/02/17 17:20 Dose: Not Given Pantoprazole Sodium (Protonix Iv) 40 mg IVPUSH ONETIME ONE Stop: 01/02/17 18:15 Last Admin: 01/02/17 18:26 Dose: 40 mg Pantoprazole Sodium (Protonix Iv) 40 mg IVPUSH Q12H [facility] Last Admin: 01/03/17 10:51 Dose: Not Given Polyethylene Glycol (Miralax) 17 gm PO DAILY PRN PRN Reason: Constipation Polyethylene Glycol/Electrolytes (Golytely) 4,000 ml PO ONETIME ONE Stop: 01/03/17 14:44 Consult PN Assessment/Plan Procedures: Procedures APPLY LONG ARM SPLINT (10/05/15) ASSAY OF CK (CPK) (10/05/15) ASSAY OF CREATININE (02/23/15) ASSAY OF FREE THYROXINE (10/05/15) ASSAY OF MAGNESIUM (10/05/15) ASSAY OF TROPONIN QUANT (10/05/15) ASSAY THYROID STIM HORMONE (10/05/15) COMPLETE CBC W/AUTO DIFF WBC (10/05/15) COMPREHEN METABOLIC PANEL (10/05/15) COMPUTER DX MAMMOGRAM ADD-ON (08/17/15) CT HEAD/BRAIN W/O DYE (10/05/15) DRAIN/INJ JOINT/BURSA W/O US (11/19/13) ECG MONIT/REPRT UP TO 48 HRS (10/08/15) ECG MONIT/REPRT UP TO 48 HRS (10/08/15) ELECTROCARDIOGRAM TRACING (10/05/15) EMERGENCY DEPT VISIT (10/05/15) EXTRACRANIAL BILAT STUDY (10/05/15) FIBRIN DEGRADATION QUANT (08/09/15) FLUOROGUIDE FOR SPINE INJECT (11/19/13) FLUOROSCOPE EXAMINATION (10/18/15) GAIT TRAINING THERAPY (10/05/15) INJ FORAMEN EPIDURAL L/S (02/18/14) INJECT SPINE LUMBAR/SACRAL (11/19/13) MEASURE BLOOD OXYGEN LEVEL (10/05/15) METABOLIC PANEL TOTAL CA (10/05/15) MICROBE SUSCEPTIBLE HOWARD (10/05/15) MR-STAPH DNA AMP PROBE (10/14/15) MRI LUMBAR SPINE W/O DYE (02/23/15) OT EVALUATION (10/05/15) PIN ULNAR STYLOID FRACTURE (10/18/15) PT EVALUATION (10/05/15) ROUTINE VENIPUNCTURE (10/05/15) SELF CARE MNGMENT TRAINING (10/05/15) THER/PROPH/DIAG INJ IV PUSH (10/05/15) THERAPEUTIC ACTIVITIES (10/05/15) THERAPEUTIC EXERCISES (10/05/15) TISSUE EXAM BY PATHOLOGIST (04/27/15) TREAT FX RAD EXTRA-ARTICUL (10/18/15) TTE W/DOPPLER COMPLETE (10/05/15) TX/PRO/DX INJ SAME DRUG SILVER LAP MACHINE TENDER (10/05/15) URINALYSIS AUTO W/SCOPE (10/05/15) URINE BACTERIA CULTURE (10/05/15) URINE CULTURE/COLONY COUNT (10/05/15) VITAMIN D 25 HYDROXY (10/05/15) X-RAY EXAM OF WRIST (10/05/15) Problem List Initiated/Reviewed/Updated: Yes My Orders Last 24 Hours: My Active Orders 01/03/17 14:41 Verify Patient Consent Obtain [RC] ASDIRECTED Schedule Procedure [COMM] Routine 01/03/17 17:00 KCl/Na Sulf,Bicarb,Cl/PEG 3351 [GoLytely] 4,000 ml PO ONETIME ONE 01/03/17 Dinner Clear Liquid Diet [DIET] Nothing per Oral After Midnight Diet [DIET] surgical consult dictated NELSY
--- NOTE | 2017-01-03 16:41 | PCM.PREANE ---
Preanesthetic Assessment - Procedure Proposed Procedure: Diagnostic EGD Diagnostic Colonoscopy - Anesthesia/Transfusion/Family Hx Anesthesia History: Prior Anesthesia Without Reaction Family History of Anesthesia Reaction: No Transfusion History: No Prior Transfusion(s) - Review of Systems General: No Symptoms Pulmonary: No Symptoms Cardiovascular: Other (HTN, hyperlipidemia) Gastrointestinal: Diarrhea (chronic due to colonic resection ), Other (hx diverticulitis, colonic resection) Neurological: Headache (chronic headaches, neck pain and back pain), Other ( rare TIA "havent had one in a long time") Other: Reports: Easy Bruising (due to ASA) - Physical Assessment NPO Status Date: 01/03/17 NPO Status Time: 23:55 Pulse: 75 O2 Sat by Pulse Oximetry: 91 Respiratory Rate: 16 Blood Pressure: 125/75 Temperature: 37.1 C Vital Signs: Last Vital Signs Temp 37.1 C 01/03/17 12:40 Pulse 75 01/03/17 12:40 Resp 16 01/03/17 12:40 BP 125/75 01/03/17 12:40 Pulse Ox 91 L 01/03/17 12:40 Height: 1.57 m Weight: 53.479 kg ASA Class: 3 Mental Status: Alert & Oriented x3 Airway Class: Mallampati = 1 Dentition: Reports: Normal Dentition Thyro-Mental Finger Breadths: 3 Mouth Opening Finger Breadths: 3 ROM/Head Extension: Limited/Partial (chronic neck pain) Lungs: Clear to Auscultation, Normal Respiratory Effort Cardiovascular: Regular Rate, Regular Rhythm - Lab Values: Laboratory Last Values WBC 5.77 K/mm3 (3.98-10.04) 01/03/17 05:51 RBC 2.99 M/mm3 (3.98-5.22) L 01/03/17 05:51 Hgb 8.7 gm/L (11.2-15.7) L 01/03/17 05:51 Hct 27.0 % (34.1-44.9) L 01/03/17 05:51 MCV 90.3 fl (79.4-94.8) 01/03/17 05:51 MCH 29.1 pg (25.6-32.2) 01/03/17 05:51 MCHC 32.2 g/dl (32.2-35.5) 01/03/17 05:51 RDW Std Deviation 42.1 fL (36.4-46.3) 01/03/17 05:51 Plt Count 189 K/mm3 (182-369) 01/03/17 05:51 MPV 9.9 fl (9.4-12.3) 01/03/17 05:51 Neut % (Auto) 56.1 % (34.0-71.1) 01/03/17 05:51 Lymph % (Auto) 33.1 % (19.3-51.7) 01/03/17 05:51 [place] % (Auto) 8.7 % (4.7-12.5) 01/03/17 05:51 Eos % (Auto) 1.6 (0.7-5.8) 01/03/17 05:51 Baso % (Auto) 0.3 % (0.1-1.2) 01/03/17 05:51 Neut # (Auto) 3.24 K/mm3 (1.56-6.13) 01/03/17 05:51 Lymph # (Auto) 1.91 K/mm3 (1.18-3.74) 01/03/17 05:51 [place] # (Auto) 0.50 K/mm3 (0.24-0.36) H 01/03/17 05:51 Eos # (Auto) 0.09 K/mm3 (0.04-0.36) 01/03/17 05:51 Baso # (Auto) 0.02 K/mm3 (0.01-0.08) 01/03/17 05:51 Neutrophils % (Manual) 64 % (40-60) H 01/02/17 17:00 Band Neutrophils % 0 % (0-10) 01/02/17 17:00 Lymphocytes % (Manual) 28 % (20-40) 01/02/17 17:00 Atypical Lymphs % 0 % 01/02/17 17:00 Monocytes % (Manual) 5 % (2-10) 01/02/17 17:00 Eosinophils % (Manual) 1 % (0.7-5.8) 01/02/17 17:00 Basophils % (Manual) 2 (0.1-1.2) H 01/02/17 17:00 Toxic Granulation Few 01/02/17 17:00 Platelet Estimate Adequate 01/02/17 17:00 Plt Morphology Comment Normal 01/02/17 17:00 Anisocytosis 1+ slight 01/02/17 17:00 Microcytosis 1+ slight 01/02/17 17:00 RBC Morph Comment Not Reportable 01/02/17 17:00 PT 10.5 SECONDS (8.0-13.0) 01/02/17 17:00 INR 0.97 01/02/17 17:00 APTT 22 SECONDS (22-36) 01/02/17 17:00 Sodium 141 mEq/L (136-145) 01/03/17 05:51 Potassium 4.1 mEq/L (3.5-5.1) 01/03/17 05:51 Chloride 107 mEq/L (98-107) 01/03/17 05:51 Carbon Dioxide 30 mEq/L (21-32) 01/03/17 05:51 Anion Gap 8.1 (5-15) 01/03/17 05:51 BUN 26 mg/dL (7-18) H 01/03/17 05:51 Creatinine 0.8 mg/dL (0.55-1.02) 01/03/17 05:51 Est Cr Clr Drug Dosing 42.88 mL/min 01/03/17 05:51 Estimated GFR (MDRD) > 60 mL/min (>60) 01/03/17 05:51 BUN/Creatinine Ratio 32.5 (14-18) H 01/03/17 05:51 Glucose 108 mg/dL (83-115) 01/03/17 05:51 Calcium 9.0 mg/dL (8.5-10.1) 01/03/17 05:51 Magnesium 1.7 mg/dl (1.8-2.4) L 01/03/17 05:51 Total Bilirubin 0.4 mg/dL (0.2-1.0) 01/02/17 17:00 AST 29 U/L (15-37) 01/02/17 17:00 ALT 27 U/L (14-59) 01/02/17 17:00 Alkaline Phosphatase 80 U/L (46-116) 01/02/17 17:00 Total Protein 7.2 g/dl (6.4-8.2) 01/02/17 17:00 Albumin 3.9 g/dl (3.4-5.0) 01/02/17 17:00 Globulin 3.3 gm/dL 01/02/17 17:00 Albumin/Globulin Ratio 1.2 (1-2) 01/02/17 17:00 H. pylori IgG Antibody Negative (NEGATIVE) 01/02/17 17:00 MRSA (PCR) Negative 01/03/17 02:20 Blood Type O POSITIVE 01/02/17 17:00 - Allergies Allergies/Adverse Reactions: Allergies Allergy/AdvReac Type Severity Reaction Status Date / Time No Known Allergies Allergy Verified 01/02/17 16:47 - Blood Blood Available: No - Anesthesia Plan Pre-Op Medication Ordered: None - Acknowledgements Anesthesia Type Planned: MAC Pt an Appropriate Candidate for the Planned Anesthesia: Yes Alternatives and Risks of Anesthesia Discussed w Pt/Guardian: Yes Pt/Guardian Understands and Agrees with Anesthesia Plan: Yes PreAnesthesia Questionnaire HEENT History: Reports: Allergic Rhinitis Cardiovascular History: Reports: High Cholesterol, Hypertension Respiratory History: Reports: None Gastrointestinal History: Reports: Chronic Diarrhea, Diverticulosis, Hemorrhoids , Irritable Bowel Syndrome Genitourinary History: Reports: Urinary Incontinence, Other (See Below) Other Genitourinary History: Dribbling REGISTERED REPRESENTATIVE History: Reports: Musculoskeletal History: Reports: Arthritis, Back Pain, Chronic, Fracture, Neck Pain, Chronic Other Musculoskeletal History: chronic neck pain Neurological History: Reports: Headaches, Chronic Other Neuro History: LOC with the fall Psychiatric History: Reports: None Endocrine/Metabolic History: Reports: None Dermatologic History: Reports: None - Infectious Disease History Infectious Disease History: Reports: Chicken Pox, Shingles - Past Surgical History HEENT Surgical History: Reports: Cataract Surgery, Other (See Below) GI Surgical History: Reports: Colonoscopy (But not for greater than 5 years.), Other (See Below) (Patient reports that she had 18 inches of her sigmoid colon resected in the past because of diverticulitis.) Female Surgical History: Reports: Hysterectomy, Other (See Below) (Bladder sling procedure.) Musculoskeletal Surgical History: Reports: Other (See Below) - SUBSTANCE USE Smoking Status *Q: Never Smoker Second Hand Smoke Exposure: No Recreational Drug Use History: No - HOME MEDS Home Medications: Home Meds Aspirin [Low Dose Aspirin EC] 81 mg PO DAILY 11/19/13 [History] Hydrochlorothiazide 12.5 mg PO DAILY 11/19/13 [History] Lactobacillus Acidophilus [Probiotic] 1 cap PO DAILY 11/19/13 [History] Metoprolol Succinate [Toprol XL] 25 mg PO DAILY 11/19/13 [History] Docusate Sodium [Colace] 100 mg PO BID PRN 01/02/17 [History] - CURRENT (IN HOUSE) MEDS Current Meds: Current Medications Acetaminophen (Tylenol) 650 mg PO Q4H PRN PRN Reason: Pain (Mild 1-3)/fever Hydrocodone Bitart/Acetaminophen ([place] 325-5 Mg) 1 tab PO Q4H PRN PRN Reason: Pain (moderate 4-6) Albuterol/Ipratropium (Duoneb 3.0-0.5 Mg/3 Ml) 3 ml NEB Q4HRRT PRN PRN Reason: Shortness Of Breath/wheezing Bisacodyl (Dulcolax) 5 mg PO DAILY PRN PRN Reason: Constipation Docusate Sodium (Colace) 100 mg PO BID PRN PRN Reason: Constipation Hydralazine HCl (Apresoline) 10 mg IVPUSH Q4H PRN PRN Reason: Hypertension Hydromorphone HCl (Dilaudid) 0.25 mg IVPUSH Q2H PRN PRN Reason: Pain (severe 7-10) Dextrose/Sodium Chloride (Dextrose 5%-1/2 Ns) 1,000 mls @ 50 mls/hr IV [facility]IRECTED [facility] Last Admin: 01/03/17 00:11 Dose: 50 mls/hr Promethazine HCl 12.5 mg/ (Sodium Chloride) 50.5 mls @ 100 mls/hr IV Q6H PRN PRN Reason: Nausea/Vomiting Lorazepam (Ativan) 0.25 mg IV Q6H PRN PRN Reason: Anxiety Lorazepam (Ativan) 2 mg IVPUSH Q4H PRN PRN Reason: Seizures Magnesium Sulfate (Pharmacy To Dose - Magnesium Replacement) 1 dose .XX [facility]IRECTED [facility] Metoprolol Tartrate (Lopressor) 5 mg IVPUSH Q4H PRN PRN Reason: Tachycardia Ondansetron HCl (Zofran) 4 mg IV Q6H PRN PRN Reason: Nausea/Vomiting Pantoprazole Sodium (Protonix) 40 mg PO Q12H [facility] Hydrochlorothiazide (12.5 Mg Tabs) 0 each PO DAILY [facility] Last Admin: 01/03/17 10:53 Dose: 12.5 each Metoprolol Succinate (25 Mg Tab.Er) 0 each PO DAILY [facility] Last Admin: 01/03/17 10:53 Dose: 25 each Polyethylene Glycol/Electrolytes (Golytely) 4,000 ml PO ONETIME ONE Stop: 01/03/17 17:01 Potassium Chloride (Pharmacy To Dose - Potassium Replacement) 1 dose .XX ASDIRECTED [facility] Saccharomyces Boulardii (Florastor) 250 mg PO DAILY [facility] Last Admin: 01/03/17 10:48 Dose: 250 mg Sucralfate (Carafate) 1 gm PO QIDACANDBED [facility] Last Admin: 01/03/17 10:48 Dose: 1 gm Temazepam (Restoril) 7.5 mg PO BEDTIME PRN PRN Reason: Sleep Discontinued Medications Diphtheria/Tetanus/Acell Pertussis (Adacel) 0.5 ml IM .ONCE ONE Stop: 01/03/17 08:32 Sodium Chloride (Normal Saline) 1,000 mls @ 100 mls/hr IV ASDIRECTED [facility] Last Admin: 01/02/17 17:09 Dose: 100 mls/hr Dextrose/Sodium Chloride (Dextrose 5%-Normal Saline) 1,000 mls @ 100 mls/hr IV ASDIRECTED [facility] Magnesium Sulfate/Dextrose 1 (gm/ Premix) 100 mls @ 100 mls/hr IV ONETIME ONE Stop: 01/03/17 15:56 Last Admin: 01/03/17 15:03 Dose: 100 mls/hr Lidocaine HCl (Xylocaine 2% Jelly) 10 ml MUCMEM ONETIME ONE Stop: 01/02/17 17:15 Last Admin: 01/02/17 17:21 Dose: 10 ml Lidocaine HCl (Xylocaine 2% Jelly) Confirm Administered Dose 10 ml .ROUTE .STK- MED ONE Stop: 01/02/17 17:20 Last Admin: 01/02/17 17:20 Dose: Not Given Pantoprazole Sodium (Protonix Iv) 40 mg IVPUSH ONETIME ONE Stop: 01/02/17 18:15 Last Admin: 01/02/17 18:26 Dose: 40 mg Pantoprazole Sodium (Protonix Iv) 40 mg IVPUSH Q12H [facility] Last Admin: 01/03/17 10:51 Dose: Not Given Polyethylene Glycol (Miralax) 17 gm PO DAILY PRN PRN Reason: Constipation Polyethylene Glycol/Electrolytes (Golytely) 4,000 ml PO ONETIME ONE Stop: 01/03/17 14:44 Last Admin: 01/03/17 15:53 Dose: Not Given
[2017-01-03] MEDS: Pantoprazole 40 MG Tab.CR PO SCH (21:32)
[2017-01-04] MEDS: Sucralfate 1 GM Tab PO SCH ×4 (06:29→22:02)
[2017-01-04] MEDS: METOPROLOL SUCCINATE 25 MG PO SCH ×2 (06:31→12:30)
[2017-01-04] MEDS ORDERED: Propofol 200 MG/20 ML SDV ONE (09:37)
[2017-01-04] MEDS ORDERED: Lidocaine 1% 4 ML ONE (09:37)
[2017-01-04] MEDS ORDERED: Ketamine 500 mg/10 ML MDV ONE (09:37)
--- NOTE | 2017-01-04 10:24 | PCM.OPNOTE ---
- General Post-Op/Procedure Note Operative Procedure(s): egd/colonoscopy Pre Op Diagnosis: gi bleeding Post-Op Diagnosis: Same Anesthesia Technique: MAC Primary Surgeon: Fritz Garcia EBL in mLs: 0 Complications: None Condition: Good Free Text/Narrative:: Intake & Output 01/03/17 01/04/17 01/04/17 23:59 07:59 15:59 Intake Total 1060 1657 Output Total 2100 Balance 1060 44
--- NOTE | 2017-01-04 10:28 | PCM48HPAN ---
Post Anesthesia Note - EVALUATION WITHIN 48HRS OF ANESTHETIC Vital Signs in Normal Range: Yes Patient Participated in Evaluation: Yes Respiratory Function Stable: Yes Airway Patent: Yes Cardiovascular Function Stable: Yes Hydration Status Stable: Yes Pain Control Satisfactory: Yes Nausea and Vomiting Control Satisfactory: Yes Mental Status Recovered: Yes
--- NOTE | 2017-01-04 12:06 | CONS ---
CONSULTING PHYSICIAN: Fritz Garcia MD DATE OF CONSULTATION: 01/03/2017 HISTORY OF PRESENT ILLNESS: An 81-year-old who had an episode of rectal bleeding of bright red blood and dark tarry stools associated with some cramps. She came into the emergency room, hemoglobin was around 10.3, and she is admitted to the hospital for observation. She denied any use of non-steroidals and takes 1 aspirin a day and she is not on anticoagulation. The patient had sigmoid resection sometime ago for diverticulitis done in [place] and she had a colonoscopy about around 5 years ago done in [place]. She has never had this before. PAST MEDICAL HISTORY: The patient's medical problems are that of hypertension, hyperlipidemia, chronic diarrhea since diverticulosis, hemorrhoids, irritable bowel syndrome, arthritis, and chronic neck pain. MEDICATIONS: Per medication reconciliation form. REVIEW OF SYSTEMS: No nausea, vomiting, or epigastric pain. No fainting, weakness, numbness, convulsions and no chest pain or shortness of breath. The patient does not smoke, does not drink. No use of street drugs. SOCIAL HISTORY: No history of colon cancer in the family. PAST SURGICAL HISTORY: Consists of colonoscopy as stated above, hysterectomy, bladder sling procedure. PHYSICAL EXAMINATION: GENERAL: Alert, cooperative female. VITAL SIGNS: Her temperature 36, pulse 95, respirations 18, blood pressure 152/74, and pulse ox 95. EYES: Sclerae white. Extraocular muscle motion are normal. Oral cavity, healthy mucous membrane with mouth and tongue. NECK: Supple. No nodes. No thyromegaly. LUNGS: Clear. No rales, rhonchi, fremitus, or dullness. HEART: Tones regular rate. No S3, S4, jugular venous distention, or murmurs. ABDOMEN: Soft. No tenderness, guarding, or rebound. EXTREMITIES: Upper and lower extremities, no angulation deformities. No edema. Ambulates without a walker. NEUROLOGIC: Cranial nerves 3 through 12 intact. No sensorineural deficit. PSYCHIATRIC: Alert and cooperative. SKIN: Warm and dry. LABORATORY DATA: Showed a BUN that was slightly elevated at 45, it has come down to 26. Creatinine is normal. ASSESSMENT AND PLAN: 1. Gastrointestinal bleed, possible upper. 2. Rectal bleeding. We will do a colonoscopy looking for sources such as erosion of mesh through the rectum. Discussed the procedures, the risks, the complications and the patient understands and consents. We will schedule. PETAR /[id number]
--- NOTE | 2017-01-04 12:12 | OR ---
DATE OF OPERATION: 01/04/2017 SURGEON: Fritz Garcia MD PREOPERATIVE DIAGNOSIS: Gastrointestinal bleeding. POSTOPERATIVE DIAGNOSIS: Gastrointestinal bleeding. OPERATION PERFORMED: Upper GI endoscopy. FINDINGS: No acute disease or source of bleeding found. The second portion of the duodenum, duodenal bulb, pyloric channel, antrum, body and cardia of the stomach were free of any acute disease. J-maneuver did show a small sliding hiatal hernia. Fundus, body, and cardia were normal. GE junction located at 38 cm and showed some mild telangiectasias with chronic esophagitis, but no acute ulcers. The rest of the esophagus was free of any acute disease. ANESTHESIA: Procedure was done under IV sedation. DESCRIPTION OF PROCEDURE: The patient was taken to the endoscopy room, placed in supine position, connected to monitoring equipment, and given IV sedation. She was placed in left lateral position. Bite block was inserted. Video Olympus gastroscope was placed in posterior oropharynx and under direct vision, it was threaded past the cricopharyngeus, down the esophagus, and into the stomach. The stomach was insufflated, and the scope passed through the pylorus to the second portion of the duodenum. It was then slowly withdrawn showing the normal second portion of the duodenum, duodenal bulb, and pyloric channel. Antrum, body, and cardia of the stomach were viewed. J-maneuver was performed showing a small sliding hiatal hernia. Cardia, fundus, body of the stomach, and antrum did not show any acute disease. Scope was withdrawn to the GE junction, which did not show any acute disease, was located at 38 cm. There was some chronic disease noted, chronic esophagitis. The rest of the esophagus viewed as the scope was withdrawn and was normal. The patient tolerated the procedure. IV sedation was continued for colonoscopy. ESTIMATED BLOOD LOSS: MMODAL /[id number]
--- NOTE | 2017-01-04 12:12 | OR ---
DATE OF OPERATION: 01/04/2017 SURGEON: Fritz Garcia MD PREOPERATIVE DIAGNOSIS: Gastrointestinal bleed. POSTOPERATIVE DIAGNOSIS: Gastrointestinal bleed. OPERATION PERFORMED: Colonoscopy to cecum. FINDINGS: Occasional diverticulum in descending colon. There were no angiodysplasias, neoplasias, large tumor masses, ulcerations, or notable hemorrhoids. ANESTHESIA: Procedure was done under IV sedation. DESCRIPTION OF PROCEDURE: Having been connected to monitoring equipment and given IV sedation for upper GI endoscopy, IV sedation was continued for colonoscopy. She was placed in left lateral position. Perianal area showed some hemorrhoidal tags. Rectal exam showed good sphincter tone. A video Olympus colonoscope was then introduced into the rectum and threaded up without problem to the cecum, where the appendicular orifice and ileocecal valve were noted. Prep was excellent throughout the colon. [place] Cleansing score grade A. The scope was slowly withdrawn showing the cecum, ascending colon, transverse colon, descending colon, sigmoid colon, and rectum. The patient tolerated the procedure and was sent to recovery room in a stable condition. ESTIMATED BLOOD LOSS: MMODAL /[id number]
[2017-01-04] MEDS: Saccharomyces Boulardii (Probiotic) 250 MG Cap PO SCH (12:30)
[2017-01-04] MEDS: Pantoprazole 40 MG Tab.CR PO SCH ×2 (12:30→20:29)
--- NOTE | 2017-01-04 12:54 | PCM.PN ---
- General Info Date of Service: 01/04/17 Functional Status: Reports: Tolerating Diet, Ambulating, Urinating - Review of Systems General: Reports: Weakness HEENT: Reports: No Symptoms Pulmonary: Reports: No Symptoms Cardiovascular: Reports: No Symptoms Gastrointestinal: Reports: No Symptoms Genitourinary: Reports: No Symptoms Musculoskeletal: Reports: No Symptoms Skin: Reports: No Symptoms Neurological: Reports: No Symptoms Psychiatric: Reports: No Symptoms - Patient Data Vitals - Most Recent: Last Vital Signs Temp 36.7 C 01/04/17 12:34 Pulse 58 L 01/04/17 12:34 Resp 18 01/04/17 12:34 BP 112/54 L 01/04/17 12:34 Pulse Ox 92 L 01/04/17 12:34 Weight - Most Recent: 53.342 kg I&O - Last 24 Hours: Intake & Output 01/03/17 01/04/17 01/04/17 22:59 06:59 14:59 Intake Total 1060 1657 Output Total 600 2100 Balance 460 -443 Lab Results Last 24 Hours: Laboratory Results - last 24 hr 01/04/17 Range/Units 11:55 WBC 6.62 (3.98-10.04) K/mm3 RBC 2.99 L (3.98-5.22) M/mm3 Hgb 8.8 L (11.2-15.7) gm/L Hct 27.5 L (34.1-44.9) % MCV 92.0 (79.4-94.8) fl MCH 29.4 (25.6-32.2) pg MCHC 32.0 L (32.2-35.5) g/dl RDW Std Deviation 43.5 (36.4-46.3) fL Plt Count 218 (182-369) K/mm3 MPV 9.7 (9.4-12.3) fl Neut % (Auto) 61.7 (34.0-71.1) % Lymph % (Auto) 25.5 (19.3-51.7) % [place] % (Auto) 9.5 (4.7-12.5) % Eos % (Auto) 2.6 (0.7-5.8) Baso % (Auto) 0.5 (0.1-1.2) % Neut # (Auto) 4.09 (1.56-6.13) K/mm3 Lymph # (Auto) 1.69 (1.18-3.74) K/mm3 [place] # (Auto) 0.63 H (0.24-0.36) K/mm3 Eos # (Auto) 0.17 (0.04-0.36) K/mm3 Baso # (Auto) 0.03 (0.01-0.08) K/mm3 Leo Results Last 24 Hours: Microbiology 01/03/17 20:32 Stool Occult Blood (LEO) - Final Stool / Feces Med Orders - Current: Current Medications Acetaminophen (Tylenol) 650 mg PO Q4H PRN PRN Reason: Pain (Mild 1-3)/fever Hydrocodone Bitart/Acetaminophen ([place] 325-5 Mg) 1 tab PO Q4H PRN PRN Reason: Pain (moderate 4-6) Albuterol/Ipratropium (Duoneb 3.0-0.5 Mg/3 Ml) 3 ml NEB Q4HRRT PRN PRN Reason: Shortness Of Breath/wheezing Bisacodyl (Dulcolax) 5 mg PO DAILY PRN PRN Reason: Constipation Docusate Sodium (Colace) 100 mg PO BID PRN PRN Reason: Constipation Hydralazine HCl (Apresoline) 10 mg IVPUSH Q4H PRN PRN Reason: Hypertension Hydromorphone HCl (Dilaudid) 0.25 mg IVPUSH Q2H PRN PRN Reason: Pain (severe 7-10) Dextrose/Sodium Chloride (Dextrose 5%-1/2 Ns) 1,000 mls @ 50 mls/hr IV ASDIRECTED [facility] Last Admin: 01/03/17 21:32 Dose: 50 mls/hr Promethazine HCl 12.5 mg/ (Sodium Chloride) 50.5 mls @ 100 mls/hr IV Q6H PRN PRN Reason: Nausea/Vomiting Magnesium Sulfate 2 gm/ Premix 50 mls @ 25 mls/hr IV ONETIME ONE Stop: 01/04/17 14:52 Lorazepam (Ativan) 0.25 mg IV Q6H PRN PRN Reason: Anxiety Lorazepam (Ativan) 2 mg IVPUSH Q4H PRN PRN Reason: Seizures Magnesium Sulfate (Pharmacy To Dose - Magnesium Replacement) 1 dose .XX ASDIRECTED [facility] Metoprolol Tartrate (Lopressor) 5 mg IVPUSH Q4H PRN PRN Reason: Tachycardia Ondansetron HCl (Zofran) 4 mg IV Q6H PRN PRN Reason: Nausea/Vomiting Pantoprazole Sodium (Protonix) 40 mg PO Q12H [facility] Last Admin: 01/04/17 12:30 Dose: 40 mg Hydrochlorothiazide (12.5 Mg Tabs) 0 each PO DAILY [facility] Last Admin: 01/04/17 12:30 Dose: 12.5 each Metoprolol Succinate (25 Mg Tab.Er) 0 each PO DAILY [facility] Last Admin: 01/04/17 12:30 Dose: 25 each Potassium Chloride (Pharmacy To Dose - Potassium Replacement) 1 dose .XX ASDIRECTED [facility] Saccharomyces Boulardii (Florastor) 250 mg PO DAILY [facility] Last Admin: 01/04/17 12:30 Dose: 250 mg Sucralfate (Carafate) 1 gm PO QIDACANDBED [facility] Last Admin: 01/04/17 12:29 Dose: 1 gm Temazepam (Restoril) 7.5 mg PO BEDTIME PRN PRN Reason: Sleep Discontinued Medications Diphtheria/Tetanus/Acell Pertussis (Adacel) 0.5 ml IM .ONCE ONE Stop: 01/03/17 08:32 Sodium Chloride (Normal Saline) 1,000 mls @ 100 mls/hr IV ASDIRECTED [facility] Last Admin: 01/02/17 17:09 Dose: 100 mls/hr Dextrose/Sodium Chloride (Dextrose 5%-Normal Saline) 1,000 mls @ 100 mls/hr IV ASDIRECTED [facility] Magnesium Sulfate/Dextrose 1 (gm/ Premix) 100 mls @ 100 mls/hr IV ONETIME ONE Stop: 01/03/17 15:56 Last Admin: 01/03/17 15:03 Dose: 100 mls/hr Lidocaine HCl (Xylocaine-Mpf 1%) Confirm Administered Dose 4 mls @ as directed .ROUTE .STK-MED ONE Stop: 01/04/17 09:38 Ketamine HCl (Ketalar) Confirm Administered Dose 500 mg .ROUTE .STK-MED ONE Stop: 01/04/17 09:38 Lidocaine HCl (Xylocaine 2% Jelly) 10 ml MUCMEM ONETIME ONE Stop: 01/02/17 17:15 Last Admin: 01/02/17 17:21 Dose: 10 ml Lidocaine HCl (Xylocaine 2% Jelly) Confirm Administered Dose 10 ml .ROUTE .STK- MED ONE Stop: 01/02/17 17:20 Last Admin: 01/02/17 17:20 Dose: Not Given Pantoprazole Sodium (Protonix Iv) 40 mg IVPUSH ONETIME ONE Stop: 01/02/17 18:15 Last Admin: 01/02/17 18:26 Dose: 40 mg Pantoprazole Sodium (Protonix Iv) 40 mg IVPUSH Q12H [facility] Last Admin: 01/03/17 10:51 Dose: Not Given Polyethylene Glycol (Miralax) 17 gm PO DAILY PRN PRN Reason: Constipation Polyethylene Glycol/Electrolytes (Golytely) 4,000 ml PO ONETIME ONE Stop: 01/03/17 14:44 Last Admin: 01/03/17 15:53 Dose: Not Given Polyethylene Glycol/Electrolytes (Golytely) 4,000 ml PO ONETIME ONE Stop: 01/03/17 17:01 Last Admin: 01/03/17 18:13 Dose: 4,000 ml Propofol (Diprivan 20 Ml) Confirm Administered Dose 400 mg .ROUTE .STK-MED ONE Stop: 01/04/17 09:38 - Exam Quality Assessment: DVT Prophylaxis General: Alert, Oriented, Cooperative, No Acute Distress HEENT: Pupils Equal, Pupils Reactive, EOMI Neck: Supple, Trachea Midline, No JVD Lungs: Normal Respiratory Effort Cardiovascular: Regular Rate GI/Abdominal Exam: Normal Bowel Sounds, Soft, Non-Tender, No Organomegaly, No Distention (Female) Exam: Deferred Back Exam: Normal Inspection Extremities: Normal Inspection, Normal Range of Motion, Non-Tender, No Pedal Edema Skin: Warm Neurological: No New Focal Deficit Psy/Mental Status: Alert, Normal Affect, Normal Mood - Problem List & Annotations (1) Anemia SNOMED Code(s): 567254891 Code(s): D64.9 - ANEMIA, UNSPECIFIED Status: Acute Current Visit: Yes Qualifiers: Anemia type: other cause (2) Gastrointestinal hemorrhage SNOMED Code(s): 12897937 Code(s): K92.2 - GASTROINTESTINAL HEMORRHAGE, UNSPECIFIED Status: Acute Current Visit: Yes Qualifiers: GI bleed type/associated pathology: melena Qualified Code(s): K92.1 - Melena - Problem List Review Problem List Initiated/Reviewed/Updated: Yes - My Orders Last 24 Hours: My Active Orders 01/04/17 12:53 Magnesium Sulfate/Water [Magnesium Sulfate 2 GM in Water 50 ML] 2 gm Premix Bag 1 bag IV ONETIME - Plan Plan:: Assessment/Plan: Acute: GI Bleed with Melena - H. Pylori negative - Risk factors: ASA, Hemorrhoids, Diverticulosis, IBS, and Hx/o Bowel Resection - Suspected PUD - Hgb was 10.3 ---> now 8.7 - No more episode - NPO except ice chips and sips of water +/- oral meds - PPI and Carafate - Monitor H/H - Consulted Dr. Garcia for further eval, patient okayed Hypomagnesemia - Mg of 1.7 - Pharmacy to replete and monitor Chronic: HTN HLD Diverticulosis IBS Diarrhea Hemorroids Urinary Incontinence OA/DJD Neck Pain Headaches Hx/O Bowel Resection Plan: She is clinically stable Monitor H/H No Anticoags Follow up GI results; follow diet, advance as tolerated. SW/CM for d/c planning Code status: DNR/DNI
[2017-01-04] MEDS ORDERED: Magnesium Sulfate/Water 2 GM in Premix Bag 1 BAG IV ONE (13:15)
[2017-01-05] MEDS: Saccharomyces Boulardii (Probiotic) 250 MG Cap PO SCH (08:00)
[2017-01-05] MEDS: Pantoprazole 40 MG Tab.CR PO SCH (08:00)
[2017-01-05] MEDS: Sucralfate 1 GM Tab PO SCH ×2 (08:00→10:56)
[2017-01-05] MEDS: METOPROLOL SUCCINATE 25 MG PO SCH (08:01)
[2017-01-05] MEDS ORDERED: Magnesium Oxide 400 MG Tab PO SCH (09:45)
[2017-01-05 12:51] VITALS: BP 142/80
--- NOTE | 2017-01-06 16:15 | PCM.DCSUM1 ---
Discharge Summary - Hospital Course Free Text/Narrative:: 81 year old elderly female with past medical history of hypertension hyperlipidemia, allergic rhinitis, chronic diarrhea, diverticulosis, hemorrhoids , irritable bowel syndrome, urinary frequency, urinary incontinence, DJD/ osteoarthritis, chronic neck pain, chronic headaches, who presents to the emergency department with complaints of black tarry stools mixed with blood. She denies any previous history in the past. She denies any mucus or blood clots. She denies having nausea or vomiting. No fever or chills. Patient carries a history of diverticulitis in which she underwent colonic resection in the past. She has not had any issues with her bowel in the past except for chronic diarrhea. Her last endoscopy is within the last 5 years. Patient is not on anticoagulation but takes low-dose aspirin. She denies taking NSAIDs for her chronic arthritis. She denies any history of gastritis, PUD, or heartburn. Her initial workup in emergency department shows a CBC remarkable for WBC of 10.30, RBC of 3.46, hemoglobin 10.3, and hematocrit of 31.1. Her chemistry is fairly unremarkable. Her H pylori screening is negative. She was admitted for GI bleed with melena. Procedures EGD/Colonoscopy Consult General Surgery Medications Magnesium Oxide 400 mg BID Laboratory CBC, BMP, BNP in 1 week Appointments PCP in 1 week - Discharge Data Discharge Date: 01/05/17 Discharge Disposition: Home, Self-Care 01 Condition: Good - Discharge Diagnosis/Problem(s) (1) Anemia SNOMED Code(s): 805969144 ICD Code: D64.9 - ANEMIA, UNSPECIFIED Status: Acute Qualifiers: Anemia type: other cause (2) Gastrointestinal hemorrhage SNOMED Code(s): 02578891 ICD Code: K92.2 - GASTROINTESTINAL HEMORRHAGE, UNSPECIFIED Status: Acute Qualifiers: GI bleed type/associated pathology: melena Qualified Code(s): K92.1 - Melena - Patient Summary/Data Operative Procedure(s) Performed: egd/colonoscopy Consults: Consultations 01/03/17 09:39 Consult to Physician [CONS] Routine - Patient Instructions Diet: Usual Diet as Tolerated Activity: As Tolerated Driving: May Drive Today Showering/Bathing: May Shower Notify Provider of: Increased Pain, Nausea and/or Vomiting - Discharge Plan Prescriptions/Med Rec: Magnesium Oxide 400 mg PO BID #14 tablet Home Medications: Home Meds Aspirin [Low Dose Aspirin EC] 81 mg PO DAILY 11/19/13 [History] Hydrochlorothiazide 12.5 mg PO DAILY 11/19/13 [History] Lactobacillus Acidophilus [Probiotic] 1 cap PO DAILY 11/19/13 [History] Metoprolol Succinate [Toprol XL] 25 mg PO DAILY 11/19/13 [History] Docusate Sodium [Colace] 100 mg PO BID PRN 01/02/17 [History] Magnesium Oxide 400 mg PO BID #14 tablet 01/05/17 [Rx] Patient Handouts: Fall Prevention in the Home, [id number], Gastrointestinal Bleeding Referrals: Elpidio Benton MD [Primary Care Provider] - (Dr. Benton's office will call you with a time for a hospital follow-up.) - Discharge Summary/Plan Comment DC Time >30 min.: No - General Info Date of Service: 01/02/17 Functional Status: Reports: Pain Controlled, Tolerating Diet, Ambulating, Urinating - Review of Systems General: Reports: No Symptoms HEENT: Reports: No Symptoms Pulmonary: Reports: No Symptoms Cardiovascular: Reports: No Symptoms Gastrointestinal: Reports: No Symptoms Genitourinary: Reports: No Symptoms Musculoskeletal: Reports: No Symptoms Skin: Reports: No Symptoms Neurological: Reports: No Symptoms Psychiatric: Reports: No Symptoms - Patient Data Vitals - Most Recent: Last Vital Signs Temp 36.8 C 01/05/17 08:04 Pulse 69 01/05/17 08:04 Resp 16 01/05/17 08:04 BP 142/80 H 01/05/17 11:28 Pulse Ox 95 01/05/17 08:04 Weight - Most Recent: 53.615 kg Med Orders - Current: Current Medications Discontinued Medications Acetaminophen (Tylenol) 650 mg PO Q4H PRN PRN Reason: Pain (Mild 1-3)/fever Hydrocodone Bitart/Acetaminophen ([place] 325-5 Mg) 1 tab PO Q4H PRN PRN Reason: Pain (moderate 4-6) Albuterol/Ipratropium (Duoneb 3.0-0.5 Mg/3 Ml) 3 ml NEB Q4HRRT PRN PRN Reason: Shortness Of Breath/wheezing Bisacodyl (Dulcolax) 5 mg PO DAILY PRN PRN Reason: Constipation Diphtheria/Tetanus/Acell Pertussis (Adacel) 0.5 ml IM .ONCE ONE Stop: 01/03/17 08:32 Docusate Sodium (Colace) 100 mg PO BID PRN PRN Reason: Constipation Hydralazine HCl (Apresoline) 10 mg IVPUSH Q4H PRN PRN Reason: Hypertension Hydromorphone HCl (Dilaudid) 0.25 mg IVPUSH Q2H PRN PRN Reason: Pain (severe 7-10) Sodium Chloride (Normal Saline) 1,000 mls @ 100 mls/hr IV ASDIRECTED [facility] Last Admin: 01/02/17 17:09 Dose: 100 mls/hr Dextrose/Sodium Chloride (Dextrose 5%-1/2 Ns) 1,000 mls @ 50 mls/hr IV ASDIRECTED [facility] Last Admin: 01/03/17 21:32 Dose: 50 mls/hr Promethazine HCl 12.5 mg/ (Sodium Chloride) 50.5 mls @ 100 mls/hr IV Q6H PRN PRN Reason: Nausea/Vomiting Dextrose/Sodium Chloride (Dextrose 5%-Normal Saline) 1,000 mls @ 100 mls/hr IV ASDIRECTED [facility] Magnesium Sulfate/Dextrose 1 (gm/ Premix) 100 mls @ 100 mls/hr IV ONETIME ONE Stop: 01/03/17 15:56 Last Admin: 01/03/17 15:03 Dose: 100 mls/hr Lidocaine HCl (Xylocaine-Mpf 1%) Confirm Administered Dose 4 mls @ as directed .ROUTE .STK-MED ONE Stop: 01/04/17 09:38 Magnesium Sulfate 2 gm/ Premix 50 mls @ 25 mls/hr IV ONETIME ONE Stop: 01/04/17 15:14 Last Admin: 01/04/17 14:02 Dose: 25 mls/hr Ketamine HCl (Ketalar) Confirm Administered Dose 500 mg .ROUTE .STK-MED ONE Stop: 01/04/17 09:38 Lidocaine HCl (Xylocaine 2% Jelly) 10 ml MUCMEM ONETIME ONE Stop: 01/02/17 17:15 Last Admin: 01/02/17 17:21 Dose: 10 ml Lidocaine HCl (Xylocaine 2% Jelly) Confirm Administered Dose 10 ml .ROUTE .STK- MED ONE Stop: 01/02/17 17:20 Last Admin: 01/02/17 17:20 Dose: Not Given Lorazepam (Ativan) 0.25 mg IV Q6H PRN PRN Reason: Anxiety Lorazepam (Ativan) 2 mg IVPUSH Q4H PRN PRN Reason: Seizures Magnesium Oxide (Magnesium Oxide) 400 mg PO BID [facility] Last Admin: 01/05/17 10:57 Dose: 400 mg Magnesium Sulfate (Pharmacy To Dose - Magnesium Replacement) 1 dose .XX ASDIRECTED [facility] Metoprolol Tartrate (Lopressor) 5 mg IVPUSH Q4H PRN PRN Reason: Tachycardia Ondansetron HCl (Zofran) 4 mg IV Q6H PRN PRN Reason: Nausea/Vomiting Pantoprazole Sodium (Protonix Iv) 40 mg IVPUSH ONETIME ONE Stop: 01/02/17 18:15 Last Admin: 01/02/17 18:26 Dose: 40 mg Pantoprazole Sodium (Protonix Iv) 40 mg IVPUSH Q12H [facility] Last Admin: 01/03/17 10:51 Dose: Not Given Pantoprazole Sodium (Protonix) 40 mg PO Q12H [facility] Last Admin: 01/05/17 08:00 Dose: 40 mg Hydrochlorothiazide (12.5 Mg Tabs) 0 each PO DAILY [facility] Last Admin: 01/05/17 08:00 Dose: 12.5 each Metoprolol Succinate (25 Mg Tab.Er) 0 each PO DAILY [facility] Last Admin: 01/05/17 08:01 Dose: 25 each Polyethylene Glycol (Miralax) 17 gm PO DAILY PRN PRN Reason: Constipation Polyethylene Glycol/Electrolytes (Golytely) 4,000 ml PO ONETIME ONE Stop: 01/03/17 14:44 Last Admin: 01/03/17 15:53 Dose: Not Given Polyethylene Glycol/Electrolytes (Golytely) 4,000 ml PO ONETIME ONE Stop: 01/03/17 17:01 Last Admin: 01/03/17 18:13 Dose: 4,000 ml Potassium Chloride (Pharmacy To Dose - Potassium Replacement) 1 dose .XX ASDIRECTED [facility] Propofol (Diprivan 20 Ml) Confirm Administered Dose 400 mg .ROUTE .STK-MED ONE Stop: 01/04/17 09:38 Saccharomyces Boulardii (Florastor) 250 mg PO DAILY [facility] Last Admin: 01/05/17 08:00 Dose: 250 mg Sucralfate (Carafate) 1 gm PO QIDACANDBED [facility] Last Admin: 01/05/17 10:56 Dose: 1 gm Temazepam (Restoril) 7.5 mg PO BEDTIME PRN PRN Reason: Sleep - Exam Quality Assessment: Reports: DVT Prophylaxis General: Reports: Alert, Oriented, Cooperative, No Acute Distress HEENT: Reports: Pupils Equal, Pupils Reactive, EOMI Neck: Reports: Supple, Trachea Midline, No JVD Lungs: Reports: Normal Respiratory Effort Cardiovascular: Reports: Regular Rate GI/Abdominal Exam: Normal Bowel Sounds, Soft, Non-Tender, No Organomegaly, No Distention (Female) Exam: Deferred Rectal (Female) Exam: Deferred Back Exam: Reports: Normal Inspection Extremities: Normal Inspection Skin: Reports: Warm, Dry, Intact Neurological: Reports: No New Focal Deficit, Normal Gait, Normal Speech Psy/Mental Status: Reports: Alert, Normal Affect, Normal Mood *Q Meaningful Use (DIS) - VTE *Q VTE Criteria *Q: - Stroke *Q Stroke Criteria *Q: - AMI *Q AMI Criteria *Q:
== END 2017-01-05 11:48 | disposition home or self-care (01) ==
LOC: JD.ED 16:23 → JD.MS 19:19
PROVIDERS: ADMIT Internal Medicine; ATTEND Internal Medicine
PROC: 0DJ08ZZ Inspection of Upper Intestinal Tract, Via Natural or Artificial Opening Endoscopic (ICD-10-PCS; principal; 2017-01-04)
PROC: 0DJD8ZZ Inspection of Lower Intestinal Tract, Via Natural or Artificial Opening Endoscopic (ICD-10-PCS; 2017-01-04)
DX: K44.9 Diaphragmatic hernia without obstruction or gangrene (principal); K20.9 Esophagitis, unspecified; K57.30 Diverticulosis of large intestine without perforation or abscess without bleeding; D64.9 Anemia, unspecified; I10 Essential (primary) hypertension; E78.5 Hyperlipidemia, unspecified; E78.00 Pure hypercholesterolemia, unspecified; K58.9 Irritable bowel syndrome, unspecified; M19.90 Unspecified osteoarthritis, unspecified site; Z79.82 Long term (current) use of aspirin; Z79.899 Other long term (current) drug therapy; Z90.49 Acquired absence of other specified parts of digestive tract; Z90.710 Acquired absence of both cervix and uterus; Z98.890 Other specified postprocedural states
CPT/HCPCS: 36415; 43235; 45300; 45378; 80048; 80053; 82270; 82272; 83735; 85014; 85018; 85025; 85610; 85730; 86677; 86900; 86901; 87641; 96361; 96365; 96366; 96375; 97112; 97116; 97162; 97165; 97530; 99285; A9270; C9113; G0378; J3475; J7040; J7042; 00810; 96360; 99284; J2704

== ENCOUNTER 2018-11-20 06:17 | Day surgery (SDC) | payer MEDICARE, OTHER ==
[~2018-11-20 06:17] MED LIST: Lactated Ringers 1,000 ML IV SCH; Lidocaine 1%/Sod Bicarbonate in NS 8.4% 1 ML Syringe IDERM PRN; Sodium Chloride 0.9% 10 ML Syringe FLUSH PRN
[2018-11-20] MEDS ORDERED: Bupivacaine 0.25% 30 ML SDV ONE (06:56)
[2018-11-20] MEDS ORDERED: Lidocaine 1% 30 ML SDV ONE (06:56)
[2018-11-20 08:23] VITALS: BP 145/67
--- NOTE | 2018-11-20 09:48 | PCM.OPNOTE ---
- General Post-Op/Procedure Note Date of Surgery/Procedure: 11/20/18 Operative Procedure(s): right index finger a1 praful release Pre Op Diagnosis: right index finger stenosing tenosynovitis Post-Op Diagnosis: Same Anesthesia Technique: Local Primary Surgeon: Fredrick LOYOLA in mLs: 5 Complications: None Condition: Good
--- NOTE | 2018-11-20 10:09 | OR ---
DATE OF OPERATION: 11/20/2018 SURGEON: Fredrick Peres MD OPERATION PERFORMED: Right index finger A1 praful release. PREOPERATIVE DIAGNOSIS: Right index finger stenosing tenosynovitis. POSTOPERATIVE DIAGNOSIS: Right index finger stenosing tenosynovitis. ANESTHESIA: Local only. WASHING MACHINE LOADER: None. ANESTHESIA PERSONNEL: None. ESTIMATED BLOOD LOSS: Less than 5 mL. COMPLICATIONS: None. CONDITION: Stable. DESCRIPTION OF PROCEDURE: The patient was identified in the preop holding area, where proper site was marked and identified by the surgeon. The patient was taken back to the operative theater, where after adequate anesthesia, the patient's right upper extremity was sterilely prepped and draped in the usual sterile fashion. OR time-out was performed. 2 g of IV Ancef was given. At this time, right upper extremity was exsanguinated with an Esmarch and Esmarch was used as a tourniquet on the forearm. 1% lidocaine without epinephrine and 0.25% Marcaine without epinephrine were used to anesthetize the incisional site over the A1 praful. A transverse incision was then made. Blunt dissection was taken down to the A1 praful. Ragnell retractors were then placed to protect the neurovascular bundles, and a Tillman blade was used to resect the A1 praful, stopping short of the A2 praful. At this time, it was released both proximally and distally. It was found to be adequate release. The patient was able then to achieve full extension at the PIP and MCP joints compared to the previous before surgery. Adequate saline was irrigated through the wound. 4-0 nylon simple suture was used for closure of the skin. The patient had sterile soft dressing applied and sent to PACU in stable condition. MMODAL /[id number]
== END 2018-11-20 08:22 | disposition home or self-care (01) ==
LOC: JD.SDS 06:17
PROVIDERS: ATTEND Orthopaedic Surgery
DX: M65.841 Other synovitis and tenosynovitis, right hand (principal); I10 Essential (primary) hypertension; Z79.899 Other long term (current) drug therapy
CPT/HCPCS: 87641; J2001; J3490

== ENCOUNTER 2020-08-07 09:40 | Emergency (ER) | payer MEDICARE, OTHER ==
--- NOTE | 2020-08-07 10:29 | EDM.PDOC ---
ED HPI GENERAL MEDICAL PROBLEM - General Chief Complaint: Lower Extremity Injury/Pain Stated Complaint: [facility] Time Seen by Provider: 08/07/20 10:22 - History of Present Illness INITIAL COMMENTS - FREE TEXT/NARRATIVE: 84-year-old female brought in by EMS after injuring her right ankle. Approximately 8:00 this morning now 2-1/2 hours ago the patient fell while mopping the floor. Patient is not sure why she fell she was just mopping and all of a sudden felt to herself move back. She twisted her ankle. She is not sure how and this is what is hurting. She denies pain elsewhere. She did not hit her head had no loss of consciousness. She is not aware of any other injuries associated with this most unfortunate event however she has significant pain in her ankle. Right Ankle Pain Score (Numeric/FACES): 9 - Related Data Allergies Allergy/AdvReac Type Severity Reaction Status Date / Time No Known Allergies Allergy Verified 08/07/20 09:48 Home Meds: Home Meds Metoprolol Succinate [Toprol XL] 25 mg PO DAILY 11/19/13 [History] hydroCHLOROthiazide [Hydrochlorothiazide] 12.5 mg PO DAILY 11/19/13 [History] Past Medical History HEENT History: Reports: Allergic Rhinitis, Impaired Vision Cardiovascular History: Reports: High Cholesterol, Hypertension Respiratory History: Reports: None Gastrointestinal History: Reports: Chronic Diarrhea, Diverticulosis, GI Bleed, Hemorrhoids, Irritable Bowel Syndrome Genitourinary History: Reports: Urinary Incontinence, Other (See Below) Other Genitourinary History: Dribbling, frequency [employer] RE[employer]ER History: Reports: Musculoskeletal History: Reports: Arthritis, Back Pain, Chronic, Fracture, Neck Pain, Chronic Other Musculoskeletal History: chronic neck pain, degenerative joint disease Neurological History: Reports: Headaches, Chronic Other Neuro History: LOC with the fall Psychiatric History: Reports: None Endocrine/Metabolic History: Reports: None Hematologic History: Reports: None Immunologic History: Reports: None Oncologic (Cancer) History: Reports: None Dermatologic History: Reports: None - Infectious Disease History Infectious Disease History: Reports: Chicken Pox, Shingles - Past Surgical History Head Surgeries/Procedures: Reports: None HEENT Surgical History: Reports: Cataract Surgery, Tonsillectomy, Other (See Below) Other HEENT Surgeries/Procedures: Bilat Cardiovascular Surgical History: Reports: None Other Cardiovascular Surgeries/Procedures: stroke Respiratory Surgical History: Reports: None GI Surgical History: Reports: Cholecystectomy, Colon, Colonoscopy, Other (See Below) Other GI Surgeries/Procedures: colon resection (18inches) Female Surgical History: Reports: Hysterectomy, Oophorectomy, Other (See Below) Other Female Surgeries/Procedures: lumpectomy to Right breast, bladder sling Endocrine Surgical History: Reports: None Neurological Surgical History: Reports: None Musculoskeletal Surgical History: Reports: Other (See Below) Other Musculoskeletal Surgeries/Procedures:: Current left wrist fracture Oncologic Surgical History: Reports: None Dermatological Surgical History: Reports: None Social & Family History - Family History Family Medical History: No Pertinent Family History Endocrine/Metabolic: Reports: Diabetes, type II Oncologic: Reports: Other (See Below) Other Oncologic Family History: melanoma - Tobacco Use Tobacco Use Status *Q: Never Tobacco User Second Hand Smoke Exposure: No - Caffeine Use Caffeine Use: Reports: Coffee - Recreational Drug Use Recreational Drug Use: No - Living Situation & Occupation Living situation: Reports: Occupation: Retired Review of Systems - Review of Systems Review Of Systems: See Below Constitutional: Reports: No Symptoms Eyes: Reports: No Symptoms Ears: Reports: No Symptoms Nose: Reports: No Symptoms Mouth/Throat: Reports: No Symptoms Respiratory: Reports: No Symptoms Cardiovascular: Reports: No Symptoms GI/Abdominal: Reports: No Symptoms Genitourinary: Reports: No Symptoms Musculoskeletal: Reports: No Symptoms Skin: Reports: No Symptoms Neurological: Reports: Other (By history it sounds like an unprovoked fall) Psychiatric: Reports: No Symptoms ED EXAM, GENERAL - Physical Exam Exam: See Below Exam Limited By: No Limitations General Appearance: Alert, No Apparent Distress, Other (She does complain of the pain) Head: Atraumatic, Normocephalic Neck: Normal Inspection, Supple, Non-Tender, Full Range of Motion Respiratory/Chest: No Respiratory Distress, Lungs Clear, Normal Breath Sounds Cardiovascular: Regular Rate, Rhythm, No Edema, No Murmur GI/Abdominal: Normal Bowel Sounds, Soft, Non-Tender Back Exam: Normal Inspection. No: CVA Tenderness (L), CVA Tenderness (R), Vertebral Tenderness Extremities: Normal Inspection, Normal Range of Motion, Non-Tender, Other (Extremities normal other than her right lower extremity thigh knee and most the lower leg look okay to get to the ankle she looks like she is fractured with a posterior displacement of the foot. X-rays pending) Neurological: Alert, Oriented, Normal Cognition Course - Vital Signs Last Recorded V/S: Last Vital Signs Temp 36.1 C 08/07/20 09:45 Pulse 74 08/07/20 09:45 Resp 16 08/07/20 09:45 BP 129/66 08/07/20 09:45 Pulse Ox 94 L 08/07/20 09:45 - Orders/Labs/Meds Orders: Active Orders 24 hr Category Date Time Status Tibia Fibula Rt [CR] Stat Exams 08/07/20 10:29 Taken Labs: Laboratory Tests 08/07/20 08/07/20 08/07/20 Range/Units 10:51 10:51 11:17 WBC 13.27 H (3.98-10.04) K/mm3 RBC 4.43 (3.98-5.22) M/mm3 Hgb 13.0 D (11.2-15.7) gm/dl Hct 40.3 (34.1-44.9) % MCV 91.0 (79.4-94.8) fl MCH 29.3 (25.6-32.2) pg MCHC 32.3 (32.2-35.5) g/dl RDW Std Deviation 42.7 (36.4-46.3) fL Plt Count 244 (182-369) K/mm3 MPV 9.3 L (9.4-12.3) fl Neut % (Auto) 84.6 H (34.0-71.1) % Lymph % (Auto) 9.1 L (19.3-51.7) % Crowley % (Auto) 5.1 (4.7-12.5) % Eos % (Auto) 0.8 (0.7-5.8) Baso % (Auto) 0.2 (0.1-1.2) % Neut # (Auto) 11.22 H (1.56-6.13) K/mm3 Lymph # (Auto) 1.21 (1.18-3.74) K/mm3 Crowley # (Auto) 0.68 H (0.24-0.36) K/mm3 Eos # (Auto) 0.11 (0.04-0.36) K/mm3 Baso # (Auto) 0.02 (0.01-0.08) K/mm3 Manual Slide Review Normal smear Sodium 143 (136-145) mEq/L Potassium 3.9 (3.5-5.1) mEq/L Chloride 106 (98-107) mEq/L Carbon Dioxide 26 (21-32) mEq/L Anion Gap 14.9 (5-15) BUN 27 H (7-18) mg/dL Creatinine 1.1 H (0.55-1.02) mg/dL Est Cr Clr Drug Dosing 29.57 mL/min Estimated GFR (MDRD) 47 (>60) mL/min BUN/Creatinine Ratio 24.5 H (14-18) Glucose 112 (83-115) mg/dL Calcium 9.7 (8.5-10.1) mg/dL Total Bilirubin 0.6 (0.2-1.0) mg/dL AST 21 (15-37) U/L ALT 23 (14-59) U/L Alkaline Phosphatase 80 (46-116) U/L Total Protein 7.6 (6.4-8.2) g/dl Albumin 3.8 (3.4-5.0) g/dl Globulin 3.8 gm/dL Albumin/Globulin Ratio 1.0 (1-2) Urine Color Yellow (Yellow) Urine Appearance Clear (Clear) Urine pH 6.0 (5.0-8.0) Ur Specific [place] > or = 1.030 (1.005-1.030) Urine Protein Negative (Negative) Urine Glucose (UA) Negative (Negative) Urine Ketones Negative (Negative) Urine Occult Blood Negative (Negative) Urine Nitrite Negative (Negative) Urine Bilirubin Negative (Negative) Urine Urobilinogen 0.2 (0.2-1.0) Ur Leukocyte Esterase Negative (Negative) Meds: Medications Discontinued Medications Generic Name Dose Route Start Last Admin Trade Name Freq PRN Reason Stop Dose Admin Fentanyl 50 mcg 08/07/20 10:35 08/07/20 10:55 Fentanyl 100 Mcg/2 Ml Sdv IVPUSH 08/07/20 10:36 50 mcg ONETIME ONE Administration - Re-Assessments/Exams Free Text/Narrative Re-Assessment/Exam: 08/07/20 11:42 Lower extremity was x-rayed. She has a posterior dislocated with an associated fibular fracture I suspected tibial fracture but I cannot clearly identify this. Anticipate closed reduction here in the emergency department. I did discuss patient's case with Dr. Babin, orthopedic surgeon on-call at [facility] in [place] who will accept the patient in transfer he would like the patient to go to the emergency room and he will see her in the ER anticipating surgery. Departure - Departure Time of Disposition: 11:48 Disposition: DC/Tfer to [facility] 02 Clinical Impression: Closed fracture dislocation of right ankle - Discharge Information Referrals: Elpidio Benton MD [Primary Care Provider] - Forms: ED Department Discharge Sepsis Event Note (ED) - Evaluation Sepsis Screening Result: No Definite Risk - Focused Exam Vital Signs: Vital Signs Temp Pulse Resp BP Pulse Ox 08/07/20 09:45 36.1 C 74 16 129/66 94 L - My Orders Last 24 Hours: My Active Orders 08/07/20 10:29 Tibia Fibula Rt [CR] Stat - Assessment/Plan Last 24 Hours: My Active Orders 08/07/20 10:29 Tibia Fibula Rt [CR] Stat
[2020-08-07] MEDS: fentaNYL 100 MCG/2 ML SDV IVPUSH ONE (10:55)
--- NOTE | 2020-08-07 11:48 | CR ---
Right tibia and fibula: AP and lateral views of the right tibia and fibula were obtained. Nondisplaced fracture is noted within the fibular head. Dislocation is seen at the tibiotalar joint in relation of the talus. Fracture is seen within the medial malleolus and lateral malleolus. Soft tissue swelling is seen which is most prominent at the ankle. Impression: 1. Fracture within the medial and lateral malleolus of the ankle with dislocation. 2. Nondisplaced fibular head fracture is seen. 3. Soft tissue swelling. Diagnostic code #5
--- NOTE | 2020-08-07 11:54 | PCM.PREANE ---
Preanesthetic Assessment - Procedure Proposed Procedure: Closed reduction of right fractured ankle. 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./ ankle pain 12/04), Headache (headaches) Other: Reports: Easy Bruising, Sinus Problem (allergic rhinitis), Neck Pain (chronic neck, back pain noted) - Physical Assessment NPO Status Date: 08/07/20 NPO Status Time: 07:30 (jefferson and eggs) Vital Signs: Last Vital Signs Temp 36.1 C 08/07/20 09:45 Pulse 74 08/07/20 09:45 Resp 16 08/07/20 09:45 BP 129/66 08/07/20 09:45 Pulse Ox 94 L 08/07/20 09:45 Height: 1.57 m Weight: 54.431 kg ASA Class: 3E Mental Status: Alert & Oriented x3 Airway Class: Mallampati = 2 Dentition: Reports: Normal Dentition, Caries Thyro-Mental Finger Breadths: 3 Mouth Opening Finger Breadths: 3 ROM/Head Extension: Full Lungs: Clear to Auscultation, Normal Respiratory Effort Cardiovascular: Regular Rate, Regular Rhythm, No Murmurs - Lab Values: Laboratory Last Values WBC 13.27 K/mm3 (3.98-10.04) H 08/07/20 10:51 RBC 4.43 M/mm3 (3.98-5.22) 08/07/20 10:51 Hgb 13.0 gm/dl (11.2-15.7) D 08/07/20 10:51 Hct 40.3 % (34.1-44.9) 08/07/20 10:51 MCV 91.0 fl (79.4-94.8) 08/07/20 10:51 MCH 29.3 pg (25.6-32.2) 08/07/20 10:51 MCHC 32.3 g/dl (32.2-35.5) 08/07/20 10:51 RDW Std Deviation 42.7 fL (36.4-46.3) 08/07/20 10:51 Plt Count 244 K/mm3 (182-369) 08/07/20 10:51 MPV 9.3 fl (9.4-12.3) L 08/07/20 10:51 Neut % (Auto) 84.6 % (34.0-71.1) H 08/07/20 10:51 Lymph % (Auto) 9.1 % (19.3-51.7) L 08/07/20 10:51 Ritchie % (Auto) 5.1 % (4.7-12.5) 08/07/20 10:51 Eos % (Auto) 0.8 (0.7-5.8) 08/07/20 10:51 Baso % (Auto) 0.2 % (0.1-1.2) 08/07/20 10:51 Neut # (Auto) 11.22 K/mm3 (1.56-6.13) H 08/07/20 10:51 Lymph # (Auto) 1.21 K/mm3 (1.18-3.74) 08/07/20 10:51 Ritchie # (Auto) 0.68 K/mm3 (0.24-0.36) H 08/07/20 10:51 Eos # (Auto) 0.11 K/mm3 (0.04-0.36) 08/07/20 10:51 Baso # (Auto) 0.02 K/mm3 (0.01-0.08) 08/07/20 10:51 Manual Slide Review Normal smear 08/07/20 10:51 Sodium 143 mEq/L (136-145) 08/07/20 10:51 Potassium 3.9 mEq/L (3.5-5.1) 08/07/20 10:51 Chloride 106 mEq/L (98-107) 08/07/20 10:51 Carbon Dioxide 26 mEq/L (21-32) 08/07/20 10:51 Anion Gap 14.9 (5-15) 08/07/20 10:51 BUN 27 mg/dL (7-18) H 08/07/20 10:51 Creatinine 1.1 mg/dL (0.55-1.02) H 08/07/20 10:51 Est Cr Clr Drug Dosing 29.57 mL/min 08/07/20 10:51 Estimated GFR (MDRD) 47 mL/min (>60) 08/07/20 10:51 BUN/Creatinine Ratio 24.5 (14-18) H 08/07/20 10:51 Glucose 112 mg/dL (83-115) 08/07/20 10:51 Calcium 9.7 mg/dL (8.5-10.1) 08/07/20 10:51 Total Bilirubin 0.6 mg/dL (0.2-1.0) 08/07/20 10:51 AST 21 U/L (15-37) 08/07/20 10:51 ALT 23 U/L (14-59) 08/07/20 10:51 Alkaline Phosphatase 80 U/L (46-116) 08/07/20 10:51 Total Protein 7.6 g/dl (6.4-8.2) 08/07/20 10:51 Albumin 3.8 g/dl (3.4-5.0) 08/07/20 10:51 Globulin 3.8 gm/dL 08/07/20 10:51 Albumin/Globulin Ratio 1.0 (1-2) 08/07/20 10:51 Urine Color Yellow (Yellow) 08/07/20 11:17 Urine Appearance Clear (Clear) 08/07/20 11:17 Urine pH 6.0 (5.0-8.0) 08/07/20 11:17 Ur Specific Alva > or = 1.030 (1.005-1.030) 08/07/20 11:17 Urine Protein Negative (Negative) 08/07/20 11:17 Urine Glucose (UA) Negative (Negative) 08/07/20 11:17 Urine Ketones Negative (Negative) 08/07/20 11:17 Urine Occult Blood Negative (Negative) 08/07/20 11:17 Urine Nitrite Negative (Negative) 08/07/20 11:17 Urine Bilirubin Negative (Negative) 08/07/20 11:17 Urine Urobilinogen 0.2 (0.2-1.0) 08/07/20 11:17 Ur Leukocyte Esterase Negative (Negative) 08/07/20 11:17 Above labs reviewed and noted and within acceptable ranges to proceed with light sedation for ankle reduction. - Allergies Allergies/Adverse Reactions: Allergies Allergy/AdvReac Type Severity Reaction Status Date / Time No Known Allergies Allergy Verified 08/07/20 09:48 - Anesthesia Plan Pre-Op Medication Ordered: Beta Dat Beta Dat: Metoprolol Med Last Dose Date: 08/07/20 Med Last Dose Time: 06:30 - Acknowledgements Anesthesia Type Planned: MAC Pt an Appropriate Candidate for the Planned Anesthesia: Yes Alternatives and Risks of Anesthesia Discussed w Pt/Guardian: Yes Pt/Guardian Understands and Agrees with Anesthesia Plan: Yes PreAnesthesia Questionnaire HEENT History: Reports: Allergic Rhinitis, Impaired Vision Cardiovascular History: Reports: High Cholesterol, Hypertension Respiratory History: Reports: None Gastrointestinal History: Reports: Chronic Diarrhea, Diverticulosis, GI Bleed, Hemorrhoids, Irritable Bowel Syndrome Genitourinary History: Reports: Urinary Incontinence, Other (See Below) Other Genitourinary History: Dribbling, frequency [employer] History: Reports: Musculoskeletal History: Reports: Arthritis, Back Pain, Chronic, Fracture, Neck Pain, Chronic Other Musculoskeletal History: chronic neck pain, degenerative joint disease Neurological History: Reports: Headaches, Chronic Other Neuro History: LOC with the fall Psychiatric History: Reports: None Endocrine/Metabolic History: Reports: None Hematologic History: Reports: None Immunologic History: Reports: None Oncologic (Cancer) History: Reports: None Dermatologic History: Reports: None - Infectious Disease History Infectious Disease History: Reports: Chicken Pox, Shingles - Past Surgical History Head Surgeries/Procedures: Reports: None HEENT Surgical History: Reports: Cataract Surgery, Tonsillectomy, Other (See Below) Other HEENT Surgeries/Procedures: Bilat Cardiovascular Surgical History: Reports: None Other Cardiovascular Surgeries/Procedures: stroke Respiratory Surgical History: Reports: None GI Surgical History: Reports: Cholecystectomy, Colon, Colonoscopy, Other (See Below) Other GI Surgeries/Procedures: colon resection (18inches) Female Surgical History: Reports: Hysterectomy, Oophorectomy, Other (See Below) Other Female Surgeries/Procedures: lumpectomy to Right breast, bladder sling Endocrine Surgical History: Reports: None Neurological Surgical History: Reports: None Musculoskeletal Surgical History: Reports: Other (See Below) Other Musculoskeletal Surgeries/Procedures:: Current left wrist fracture Oncologic Surgical History: Reports: None Dermatological Surgical History: Reports: None - SUBSTANCE USE Tobacco Use Status *Q: Never Tobacco User Second Hand Smoke Exposure: No Recreational Drug Use History: No - HOME MEDS Home Medications: Home Meds Metoprolol Succinate [Toprol XL] 25 mg PO DAILY 11/19/13 [History] hydroCHLOROthiazide [Hydrochlorothiazide] 12.5 mg PO DAILY 11/19/13 [History] - CURRENT (IN HOUSE) MEDS Current Meds: Current Medications Discontinued Medications Fentanyl (Fentanyl 100 Mcg/2 Ml Sdv) 50 mcg IVPUSH ONETIME ONE Stop: 08/07/20 10:36 Last Admin: 08/07/20 10:55 Dose: 50 mcg Documented by:
[2020-08-07] MEDS ORDERED: Lidocaine 1% 4 ML ONE (12:00)
[2020-08-07] MEDS ORDERED: fentaNYL 100 MCG/2 ML SDV ONE (12:01)
[2020-08-07] MEDS ORDERED: Propofol 200 MG/20 ML SDV ONE (12:01)
[2020-08-07] MEDS ORDERED: Lactated Ringers 1,000 ML ONE (13:05)
--- NOTE | 2020-08-07 13:15 | CR ---
Right ankle: Single AP view of the right ankle was obtained. Comparison: Prior right tibia and fibula study performed earlier on the same day (11:01 AM). Previous dislocation appears to be reduced. Fractures within the medial and lateral malleolus are better aligned. Soft tissue swelling is noted. No additional abnormality is appreciated. Impression: 1. Dislocation has been reduced. 2. Significantly reduced medial and lateral malleolus fractures. 3. Soft tissue swelling. Diagnostic code #3
[2020-08-07] MEDS: Ondansetron 4 MG/2 ML SDV IVPUSH ONE (13:25)
[2020-08-07] MEDS: Dextrose 5%-Lactated Ringers 1,000 ML IV SCH (13:25)
[2020-08-07 13:52] VITALS: BP 151/81; PULSE 74
== END 2020-08-07 13:46 ==
LOC: JD.ED 09:40
DX: S82.61XA Displaced fracture of lateral malleolus of right fibula, initial encounter for closed fracture (principal); S82.51XA Displaced fracture of medial malleolus of right tibia, initial encounter for closed fracture; I10 Essential (primary) hypertension; Z79.899 Other long term (current) drug therapy; Z20.822 Contact with and (suspected) exposure to COVID-19; X50.1XXA Overexertion from prolonged static or awkward postures, initial encounter; Y93.E5 Activity, floor mopping and cleaning
CPT/HCPCS: 27810; 36415; 73590; 73600; 80053; 81003; 85025; 96374; 99285; J2405; J2704; J3010; J7120; J7121; U0002; 01462; 99100; 99140; 99284

== ENCOUNTER 2021-10-19 13:45 | Day surgery (SDC) | payer MEDICARE, OTHER ==
[~2021-10-19 13:45] MED LIST changes: +Bupivacaine 0.25% 10 ML SDV ONE; +Lidocaine 1% 4 ML ONE; +Propofol 200 MG/20 ML SDV ONE; +Sodium Chloride 0.9% 10 ML Syringe FLUSH SCH; +ceFAZolin 1 GM Vial ONE; +fentaNYL 100 MCG/2 ML SDV ONE
[2021-10-19 15:19] VITALS: BP 129/57; PULSE 61
== END 2021-10-19 15:05 | disposition home or self-care (01) ==
LOC: JD.SDS 13:45
PROVIDERS: ATTEND Orthopaedic Surgery
DX: T84.84XA Pain due to internal orthopedic prosthetic devices, implants and grafts, initial encounter (principal); I10 Essential (primary) hypertension; E11.9 Type 2 diabetes mellitus without complications; E78.00 Pure hypercholesterolemia, unspecified; Z79.899 Other long term (current) drug therapy; Z98.890 Other specified postprocedural states
CPT/HCPCS: 20680; 76000; J0690; J2704; J3010; J3490; J7120; 01480; 99100

== ENCOUNTER 2023-11-09 18:16 | Inpatient (IN) | payer MEDICARE, OTHER ==
[2023-11-09] MEDS: Sodium Chloride 0.9% 10 ML Syringe FLUSH PRN (19:05)
[2023-11-09 19:12] LABS: BASOPHILS PERCENT AUTO 0.2 % (0.0-1.0); HEMATOCRIT 35.6 % (37.0-47.0); HEMOGLOBIN 11.9 gm/dl (12.0-16.0); IMMATURE GRAN ABSOLUTE AUTO 0.02 K/mm3 (0.00-0.05); IMMATURE GRAN PERCENT AUTO 0.2 % (0.0-0.4); LYMPHOCYTES ABSOLUTE AUTO 0.7 K/mm3 (1.0-4.8); LYMPHOCYTES PERCENT AUTO 7.3 % (24.0-44.0); MEAN CORPUSCULAR HEMOGLOBIN 30.4 pg (28.0-32.0); MEAN CORPUSCULAR HGB CONC 33.4 g/dl (32.0-36.0); MEAN CORPUSCULAR VOLUME 90.8 fl (83.0-99.0); MEAN PLATELET VOLUME 9.1 fl (9.4-12.3); NEUTROPHILS ABSOLUTE AUTO 8.2 K/mm3 (1.8-7.7); NEUTROPHILS PERCENT AUTO 82.3 % (41.0-71.0); PLATELET COUNT,PLT 212 K/mm3 (150-400); RED BLOOD CELL COUNT 3.92 M/mm3 (4.10-5.30); WHITE BLOOD CELL COUNT,WBC 9.92 K/mm3 (3.9-11.3)
[2023-11-09] MEDS: Sodium Chloride 0.9% 1,000 ML IV STA ×2 (19:30→21:38)
[2023-11-09 19:36] LABS: A/G RATIO 0.8 (1-2); ALBUMIN 3.5 g/dl (3.4-5.0); ANION GAP 15.5 (5-15); BILIRUBIN TOTAL 0.8 mg/dL (0.2-1.0); C-REACTIVE PROTEIN 5.69 mg/dL (<0.30); CALCIUM 9.3 mg/dL (8.5-10.1); EST CRCL DRUG DOSING (CG) 31.55 mL/min; POTASSIUM,K 3.5 mEq/L (3.5-5.1); PROTEIN TOTAL,TP 7.7 g/dl (6.4-8.2)
[2023-11-09 19:45] LABS: CORONAVIRUS COVID-19 NAA POSITIVE (NEGATIVE); INFLUENZA A NAA NEGATIVE (NEGATIVE); RESPIRATORY SYNCYTIAL VIR NAA NEGATIVE (NEGATIVE)
[2023-11-09] MEDS: Dexamethasone 4 MG Tab PO ONE (20:30)
[2023-11-10 06:11] LABS: APPEARANCE,URINE CLEAR (Clear); BILIRUBIN,URINE NEGATIVE (Negative); COLOR,URINE YELLOW (Yellow); GLUCOSE,URINE NEGATIVE (Negative); KETONES,URINE 1+ (Negative); LEUKOCYTE ESTERASE,URINE NEGATIVE (Negative); NITRITE,URINE NEGATIVE (Negative); OCCULT BLOOD,URINE 1+ (Negative); PROTEIN,URINE TRACE (Negative); UROBILINOGEN,URINE 0.2 (0.2-1.0)
[2023-11-10 06:26] LABS: RBC,URINE 0-5 /hpf (0-5)
[2023-11-10 06:27] LABS: BACTERIA,URINE FEW /hpf (FEW); HYALINE CASTS,URINE 0-5 /lpf (0-5); MUCUS,URINE FEW /hpf (FEW); SQUAMOUS EPITHELIAL CELLS,UR 0-5 /hpf (0-5); WBC,URINE 0-5 /hpf (0-5)
[2023-11-10 07:00] LABS: BASOPHILS PERCENT AUTO 0.1 % (0.0-1.0); HEMATOCRIT 33.1 % (37.0-47.0); HEMOGLOBIN 10.8 gm/dl (12.0-16.0); IMMATURE GRAN ABSOLUTE AUTO 0.02 K/mm3 (0.00-0.05); IMMATURE GRAN PERCENT AUTO 0.3 % (0.0-0.4); LYMPHOCYTES ABSOLUTE AUTO 0.9 K/mm3 (1.0-4.8); LYMPHOCYTES PERCENT AUTO 11.9 % (24.0-44.0); MEAN CORPUSCULAR HEMOGLOBIN 29.9 pg (28.0-32.0); MEAN CORPUSCULAR HGB CONC 32.6 g/dl (32.0-36.0); MEAN CORPUSCULAR VOLUME 91.7 fl (83.0-99.0); MONOCYTES ABSOLUTE AUTO 0.6 K/mm3 (0.0-0.8); MONOCYTES PERCENT AUTO 7.2 % (0.0-8.0); NEUTROPHILS ABSOLUTE AUTO 6.1 K/mm3 (1.8-7.7); NEUTROPHILS PERCENT AUTO 80.5 % (41.0-71.0); PLATELET COUNT,PLT 183 K/mm3 (150-400); RED BLOOD CELL COUNT 3.61 M/mm3 (4.10-5.30); WHITE BLOOD CELL COUNT,WBC 7.63 K/mm3 (3.9-11.3)
[2023-11-10 07:20] LABS: A/G RATIO 0.8 (1-2); ANION GAP 13.6 (5-15); BILIRUBIN TOTAL 0.6 mg/dL (0.2-1.0); BUN/CREATININE RATIO 23.3 (14-18); CALCIUM 8.4 mg/dL (8.5-10.1); CREATININE 0.9 mg/dL (0.55-1.02); EST CRCL DRUG DOSING (CG) 35.05 mL/min; POTASSIUM,K 3.6 mEq/L (3.5-5.1); PROTEIN TOTAL,TP 6.6 g/dl (6.4-8.2)
[2023-11-10] MEDS: Dexamethasone 4 MG Tab PO SCH (09:02)
[2023-11-10] MEDS ORDERED: Acetaminophen 325 MG Tab PO PRN (10:49)
[2023-11-10] MEDS: Heparin Sodium 5,000 Units/ML Vial SUBCUT SCH (12:35)
[2023-11-10] MEDS: Calcium Carbonate/Vitamin D3 600 MG-200 Units Tab PO SCH (17:55)
[2023-11-11 06:09] LABS: BASOPHILS PERCENT AUTO 0.1 % (0.0-1.0); HEMATOCRIT 31.4 % (37.0-47.0); HEMOGLOBIN 10.3 gm/dl (12.0-16.0); IMMATURE GRAN ABSOLUTE AUTO 0.02 K/mm3 (0.00-0.05); IMMATURE GRAN PERCENT AUTO 0.2 % (0.0-0.4); LYMPHOCYTES ABSOLUTE AUTO 1.9 K/mm3 (1.0-4.8); LYMPHOCYTES PERCENT AUTO 21.6 % (24.0-44.0); MEAN CORPUSCULAR HEMOGLOBIN 29.4 pg (28.0-32.0); MEAN CORPUSCULAR HGB CONC 32.8 g/dl (32.0-36.0); MEAN CORPUSCULAR VOLUME 89.7 fl (83.0-99.0); MEAN PLATELET VOLUME 9.4 fl (9.4-12.3); MONOCYTES ABSOLUTE AUTO 0.8 K/mm3 (0.0-0.8); MONOCYTES PERCENT AUTO 9.1 % (0.0-8.0); NEUTROPHILS ABSOLUTE AUTO 6.1 K/mm3 (1.8-7.7); PLATELET COUNT,PLT 193 K/mm3 (150-400)
[2023-11-11 06:35] LABS: A/G RATIO 0.8 (1-2); ALBUMIN 2.9 g/dl (3.4-5.0); ANION GAP 12.4 (5-15); BILIRUBIN TOTAL 0.5 mg/dL (0.2-1.0); BUN/CREATININE RATIO 26.3 (14-18); CALCIUM 8.2 mg/dL (8.5-10.1); CREATININE 0.8 mg/dL (0.55-1.02); EST CRCL DRUG DOSING (CG) 39.44 mL/min; POTASSIUM,K 3.4 mEq/L (3.5-5.1); PROTEIN TOTAL,TP 6.5 g/dl (6.4-8.2)
[2023-11-11] MEDS: Metoprolol Succinate 50 MG Tab.ER PO SCH (09:47)
[2023-11-11] MEDS: Hydrochlorothiazide 12.5 MG Cap PO SCH (09:47)
[2023-11-11] MEDS: amLODIPine 5 MG Tab PO SCH (09:47)
[2023-11-11] MEDS: Multivitamin Tab PO SCH (09:47)
[2023-11-11] MEDS: Losartan 100 MG Tab PO SCH (09:47)
[2023-11-11] MEDS: Diltiazem IR 30 MG Tab PO ONE (11:34)
[2023-11-12 05:56] LABS: HEMATOCRIT 35.5 % (37.0-47.0); HEMOGLOBIN 11.6 gm/dl (12.0-16.0); IMMATURE GRAN ABSOLUTE AUTO 0.02 K/mm3 (0.00-0.05); IMMATURE GRAN PERCENT AUTO 0.3 % (0.0-0.4); LYMPHOCYTES ABSOLUTE AUTO 1.8 K/mm3 (1.0-4.8); LYMPHOCYTES PERCENT AUTO 22.4 % (24.0-44.0); MEAN CORPUSCULAR HEMOGLOBIN 29.7 pg (28.0-32.0); MEAN CORPUSCULAR HGB CONC 32.7 g/dl (32.0-36.0); MEAN CORPUSCULAR VOLUME 90.8 fl (83.0-99.0); MEAN PLATELET VOLUME 9.3 fl (9.4-12.3); MONOCYTES ABSOLUTE AUTO 0.8 K/mm3 (0.0-0.8); MONOCYTES PERCENT AUTO 9.6 % (0.0-8.0); NEUTROPHILS ABSOLUTE AUTO 5.3 K/mm3 (1.8-7.7); NEUTROPHILS PERCENT AUTO 67.7 % (41.0-71.0); PLATELET COUNT,PLT 231 K/mm3 (150-400); RED BLOOD CELL COUNT 3.91 M/mm3 (4.10-5.30); WHITE BLOOD CELL COUNT,WBC 7.82 K/mm3 (3.9-11.3)
[2023-11-12 06:10] LABS: ANION GAP 13.8 (5-15); BUN/CREATININE RATIO 22.2 (14-18); CALCIUM 8.8 mg/dL (8.5-10.1); CREATININE 0.9 mg/dL (0.55-1.02); EST CRCL DRUG DOSING (CG) 35.05 mL/min; POTASSIUM,K 3.8 mEq/L (3.5-5.1)
[2023-11-12] MEDS: Aspirin 81 MG Tab.EC PO SCH (08:16)
[2023-11-12] MEDS: Carboxymethylcellulose Sodium 1% Ophth Gel 15 ML Bottle EYEBOTH PRN (10:08)
[2023-11-12] MEDS: Cholestyramine/Sucrose Powder 4 GM Packet PO ONE (10:08)
[2023-11-12] MEDS: [UNRECOGNIZED DRUG - OTHER] PO SCH (10:51)
[2023-11-12 11:29] VITALS: BP 148/62; PULSE 54
== END 2023-11-12 13:40 | disposition other institution (70) | DRG 177 ==
LOC: JD.ED 18:16 → JD.MS 20:45
PROVIDERS: ADMIT Internal Medicine; ATTEND Internal Medicine
PROC: 3E0333Z Introduction of Anti-inflammatory into Peripheral Vein, Percutaneous Approach (ICD-10-PCS; principal; 2023-11-09)
DX: U07.1 COVID-19 (principal); R53.1 Weakness; J96.01 Acute respiratory failure with hypoxia; E78.00 Pure hypercholesterolemia, unspecified; I10 Essential (primary) hypertension; W19.XXXD Unspecified fall, subsequent encounter; Z66 Do not resuscitate; H54.7 Unspecified visual loss; K52.9 Noninfective gastroenteritis and colitis, unspecified; M19.90 Unspecified osteoarthritis, unspecified site; M54.2 Cervicalgia; G89.29 Other chronic pain; M81.0 Age-related osteoporosis without current pathological fracture; Z86.73 Personal history of transient ischemic attack (TIA), and cerebral infarction without residual deficits; Z79.899 Other long term (current) drug therapy; Z79.82 Long term (current) use of aspirin; Z87.19 Personal history of other diseases of the digestive system; Z87.81 Personal history of (healed) traumatic fracture; Z98.49 Cataract extraction status, unspecified eye; Z90.49 Acquired absence of other specified parts of digestive tract; Z90.710 Acquired absence of both cervix and uterus; Z90.722 Acquired absence of ovaries, bilateral; Z90.89 Acquired absence of other organs; W19.XXXA Unspecified fall, initial encounter
CPT/HCPCS: 0241U; 36415; 71046; 80048; 80053; 81001; 85025; 86140; 87641; 93005; 94761; 97110; 97161; 99285; 93010; 99284; A9270-GY; J1644; J3490; J7030; J8540

== ENCOUNTER 2024-02-02 08:03 | Emergency (ER) | payer MEDICARE, OTHER ==
[2024-02-02] MEDS: Iopamidol 755 Mg/ML 100 ML Bottle IVPUSH ONE (08:37)
[2024-02-02] MEDS: Sodium Chloride 0.9% 100 ML IV SCH (08:37)
[2024-02-02] MEDS: Sodium Chloride 0.9% 1,000 ML IV ONE (08:57)
[2024-02-02] MEDS: Sodium Chloride 0.9% 10 ML Syringe FLUSH PRN (08:58)
[2024-02-02 09:10] LABS: BASOPHILS PERCENT AUTO 0.6 % (0.0-1.0); EOSINOPHILS ABSOLUTE AUTO 0.1 K/mm3 (0.0-0.4); EOSINOPHILS PERCENT AUTO 1.4 % (0.0-6.0); HEMATOCRIT 35.8 % (37.0-47.0); HEMOGLOBIN 11.8 gm/dl (12.0-16.0); IMMATURE GRAN ABSOLUTE AUTO 0.02 K/mm3 (0.00-0.05); IMMATURE GRAN PERCENT AUTO 0.3 % (0.0-0.4); LYMPHOCYTES ABSOLUTE AUTO 1.3 K/mm3 (1.0-4.8); LYMPHOCYTES PERCENT AUTO 19.2 % (24.0-44.0); MEAN CORPUSCULAR HEMOGLOBIN 30.3 pg (28.0-32.0); MEAN CORPUSCULAR VOLUME 91.8 fl (83.0-99.0); MONOCYTES ABSOLUTE AUTO 0.6 K/mm3 (0.0-0.8); NEUTROPHILS ABSOLUTE AUTO 4.9 K/mm3 (1.8-7.7); NEUTROPHILS PERCENT AUTO 70.5 % (41.0-71.0); PLATELET COUNT,PLT 227 K/mm3 (150-400); WHITE BLOOD CELL COUNT,WBC 6.91 K/mm3 (3.9-11.3)
[2024-02-02 09:31] LABS: ALBUMIN 3.5 g/dl (3.4-5.0); ANION GAP 10.9 (5-15); BILIRUBIN TOTAL 0.7 mg/dL (0.2-1.0); BUN/CREATININE RATIO 25.6 (14-18); CALCIUM 9.2 mg/dL (8.5-10.1); CREATININE 0.9 mg/dL (0.55-1.02); EST CRCL DRUG DOSING (CG) 30.44 mL/min; POTASSIUM,K 3.9 mEq/L (3.5-5.1)
[2024-02-02 09:37] LABS: INR 1.01; PROTHROMBIN TIME 10.7 SECONDS (9.7-12.0)
[2024-02-02 09:38] LABS: PTT,PARTIAL THROMBOPLSTIN TIME 24.1 SECONDS (21.7-31.4)
[2024-02-02 10:42] LABS: APPEARANCE,URINE CLEAR (Clear); BILIRUBIN,URINE NEGATIVE (Negative); COLOR,URINE YELLOW (Yellow); GLUCOSE,URINE NEGATIVE (Negative); KETONES,URINE NEGATIVE (Negative); LEUKOCYTE ESTERASE,URINE NEGATIVE (Negative); NITRITE,URINE NEGATIVE (Negative); OCCULT BLOOD,URINE NEGATIVE (Negative); PH,URINE 6.5 (5.0-8.0); PROTEIN,URINE NEGATIVE (Negative); UROBILINOGEN,URINE 0.2 (0.2-1.0)
[2024-02-02 11:05] LABS: BACTERIA,URINE FEW /hpf (FEW); MUCUS,URINE NOT SEEN /hpf (FEW); RBC,URINE 0-5 /hpf (0-5); SQUAMOUS EPITHELIAL CELLS,UR 0-5 /hpf (0-5); WBC,URINE 0-5 /hpf (0-5)
[2024-02-02 12:49] VITALS: BP 148/59; PULSE 66
== END 2024-02-02 12:00 | disposition home or self-care (01) ==
LOC: JD.ED 08:03
DX: G51.0 Bell's palsy (principal); I10 Essential (primary) hypertension; E78.00 Pure hypercholesterolemia, unspecified; Z79.82 Long term (current) use of aspirin; Z79.899 Other long term (current) drug therapy; Z90.49 Acquired absence of other specified parts of digestive tract; Z90.710 Acquired absence of both cervix and uterus; K57.90 Diverticulosis of intestine, part unspecified, without perforation or abscess without bleeding; Z86.73 Personal history of transient ischemic attack (TIA), and cerebral infarction without residual deficits
CPT/HCPCS: 36415; 70450; 70496; 70498; 80053; 81001; 82947; 84484; 85025; 85610; 85730; 93005; 96360; 96361; 99285; J3490; J7030; Q9967; 93010; 99284

== ENCOUNTER 2024-08-14 15:07 | Inpatient (IN) | payer MEDICARE, OTHER ==
[2024-08-14] MEDS: Aspirin 81 MG Tab.Chew PO ONE (16:34)
[2024-08-14 16:42] LABS: BASOPHILS ABSOLUTE AUTO 0.1 K/mm3 (0.0-0.2); BASOPHILS PERCENT AUTO 0.6 % (0.0-1.0); EOSINOPHILS ABSOLUTE AUTO 0.1 K/mm3 (0.0-0.4); EOSINOPHILS PERCENT AUTO 1.1 % (0.0-6.0); HEMATOCRIT 38.6 % (37.0-47.0); HEMOGLOBIN 12.4 gm/dl (12.0-16.0); IMMATURE GRAN ABSOLUTE AUTO 0.04 K/mm3 (0.00-0.05); IMMATURE GRAN PERCENT AUTO 0.4 % (0.0-0.4); LYMPHOCYTES ABSOLUTE AUTO 1.4 K/mm3 (1.0-4.8); LYMPHOCYTES PERCENT AUTO 13.5 % (24.0-44.0); MEAN CORPUSCULAR HEMOGLOBIN 30.2 pg (28.0-32.0); MEAN CORPUSCULAR HGB CONC 32.1 g/dl (32.0-36.0); MEAN CORPUSCULAR VOLUME 93.9 fl (83.0-99.0); MEAN PLATELET VOLUME 9.3 fl (9.4-12.3); MONOCYTES ABSOLUTE AUTO 0.6 K/mm3 (0.0-0.8); MONOCYTES PERCENT AUTO 5.6 % (0.0-8.0); NEUTROPHILS ABSOLUTE AUTO 8.2 K/mm3 (1.8-7.7); NEUTROPHILS PERCENT AUTO 78.8 % (41.0-71.0); PLATELET COUNT,PLT 224 K/mm3 (150-400); RED BLOOD CELL COUNT 4.11 M/mm3 (4.10-5.30); WHITE BLOOD CELL COUNT,WBC 10.38 K/mm3 (3.9-11.3)
[2024-08-14 17:07] LABS: A/G RATIO 1.1 (1-2); ALBUMIN 4.1 g/dl (3.4-5.0); ANION GAP 13.5 (5-15); BILIRUBIN TOTAL 1.1 mg/dL (0.2-1.0); BUN/CREATININE RATIO 26.7 (14-18); CALCIUM 9.6 mg/dL (8.5-10.1); CREATININE 0.9 mg/dL (0.55-1.02); EST CRCL DRUG DOSING (CG) 30.44 mL/min; POTASSIUM,K 4.5 mEq/L (3.5-5.1); PROTEIN TOTAL,TP 7.9 g/dl (6.4-8.2)
[2024-08-14 18:30] LABS: APPEARANCE,URINE CLEAR (Clear); BILIRUBIN,URINE NEGATIVE (Negative); COLOR,URINE YELLOW (Yellow); GLUCOSE,URINE NEGATIVE (Negative); KETONES,URINE 1+ (Negative); LEUKOCYTE ESTERASE,URINE 1+ (Negative); NITRITE,URINE NEGATIVE (Negative); OCCULT BLOOD,URINE 1+ (Negative); PH,URINE 5.5 (5.0-8.0); PROTEIN,URINE NEGATIVE (Negative); UROBILINOGEN,URINE 0.2 (0.2-1.0)
[2024-08-14 18:31] LABS: BACTERIA,URINE FEW /hpf (FEW); SQUAMOUS EPITHELIAL CELLS,UR 0-5 /hpf (0-5); WBC,URINE 20-30 /hpf (0-5)
[2024-08-14 18:32] LABS: MUCUS,URINE FEW /hpf (FEW)
[2024-08-14] MEDS: cefTRIAXone 1 GM Vial IVPUSH ONE (18:32)
[2024-08-14] MEDS ORDERED: hydrALAZINE 20 MG/ML SDV IVPUSH PRN (19:12)
[2024-08-14] MEDS ORDERED: Labetalol 100 MG/20 ML MDV IVPUSH PRN (19:12)
[2024-08-14] MEDS ORDERED: Acetaminophen 325 MG Tab PO PRN (19:13)
[2024-08-14] MEDS ORDERED: Albuterol/Ipratropium 3.0-0.5 MG/3 ML Neb Soln NEB PRN (19:13)
[2024-08-14] MEDS ORDERED: Sennosides/Docusate Sodium 50-8.6 MG Tab PO PRN (19:13)
[2024-08-14] MEDS: Piperacillin/Tazobactam 4.5 GM in Sodium Chloride 0.9% 100 ML IV ONE (22:29)
[2024-08-15] MEDS: Piperacillin/Tazobactam 4.5 GM in Sodium Chloride 0.9% 100 ML IV SCH ×2 (00:01→02:56)
[2024-08-15] MEDS: Lactated Ringers 1,000 ML IV SCH (00:02)
[2024-08-15 05:26] LABS: BASOPHILS ABSOLUTE AUTO 0.1 K/mm3 (0.0-0.2); BASOPHILS PERCENT AUTO 0.3 % (0.0-1.0); EOSINOPHILS PERCENT AUTO 0.1 % (0.0-6.0); HEMATOCRIT 32.6 % (37.0-47.0); HEMOGLOBIN 10.9 gm/dl (12.0-16.0); IMMATURE GRAN ABSOLUTE AUTO 0.08 K/mm3 (0.00-0.05); IMMATURE GRAN PERCENT AUTO 0.5 % (0.0-0.4); LYMPHOCYTES PERCENT AUTO 11.7 % (24.0-44.0); MEAN CORPUSCULAR HEMOGLOBIN 29.9 pg (28.0-32.0); MEAN CORPUSCULAR HGB CONC 33.4 g/dl (32.0-36.0); MEAN CORPUSCULAR VOLUME 89.6 fl (83.0-99.0); MONOCYTES ABSOLUTE AUTO 1.1 K/mm3 (0.0-0.8); MONOCYTES PERCENT AUTO 6.4 % (0.0-8.0); PLATELET COUNT,PLT 207 K/mm3 (150-400); RED BLOOD CELL COUNT 3.64 M/mm3 (4.10-5.30); WHITE BLOOD CELL COUNT,WBC 17.31 K/mm3 (3.9-11.3)
[2024-08-15 05:33] LABS: A/G RATIO 1.1 (1-2); ALBUMIN 3.3 g/dl (3.4-5.0); ANION GAP 14.9 (5-15); BILIRUBIN TOTAL 1.1 mg/dL (0.2-1.0); C-REACTIVE PROTEIN 1.6 mg/dL (<0.30); CALCIUM 8.9 mg/dL (8.5-10.1); EST CRCL DRUG DOSING (CG) 30.16 mL/min; MAGNESIUM 1.8 mg/dL (1.8-2.4); POTASSIUM,K 3.9 mEq/L (3.5-5.1); PROTEIN TOTAL,TP 6.4 g/dl (6.4-8.2)
[2024-08-15] MEDS ORDERED: Ondansetron 4 MG Tab.DIS PO PRN (10:05)
[2024-08-15] MEDS ORDERED: Albuterol 0.083% 2.5 MG/3 ML Neb Soln NEB PRN (10:05)
[2024-08-15] MEDS ORDERED: Ondansetron 4 MG/2 ML SDV IV PRN (10:05)
[2024-08-15] MEDS ORDERED: Carboxymethylcellulose Sodium 1% Ophth Gel 15 ML Bottle EYEBOTH PRN (11:00)
[2024-08-15] MEDS: Hydrochlorothiazide 12.5 MG Cap PO SCH (11:58)
[2024-08-15] MEDS: Mirabegron 25 MG Tab Extended Release PO SCH (11:58)
[2024-08-15] MEDS: Losartan 100 MG Tab PO SCH (11:58)
[2024-08-15] MEDS: amLODIPine 5 MG Tab PO SCH (11:58)
[2024-08-15] MEDS: Enoxaparin 40 MG/0.4 ML Syringe SUBCUT SCH (11:58)
[2024-08-15] MEDS: Metoprolol Succinate 50 MG Tab.ER PO SCH (11:59)
[2024-08-15] MEDS: Cholestyramine/Sucrose Powder 4 GM Packet PO SCH (12:00)
[2024-08-15] MEDS: Aspirin 81 MG Tab.EC PO SCH (12:03)
[2024-08-15] MEDS: Melatonin 3 MG Tab PO PRN (21:11)
[2024-08-16 06:20] LABS: BASOPHILS ABSOLUTE AUTO 0.1 K/mm3 (0.0-0.2); BASOPHILS PERCENT AUTO 0.6 % (0.0-1.0); EOSINOPHILS ABSOLUTE AUTO 0.5 K/mm3 (0.0-0.4); EOSINOPHILS PERCENT AUTO 4.8 % (0.0-6.0); HEMATOCRIT 29.6 % (37.0-47.0); HEMOGLOBIN 9.8 gm/dl (12.0-16.0); IMMATURE GRAN ABSOLUTE AUTO 0.03 K/mm3 (0.00-0.05); IMMATURE GRAN PERCENT AUTO 0.3 % (0.0-0.4); LYMPHOCYTES ABSOLUTE AUTO 1.7 K/mm3 (1.0-4.8); LYMPHOCYTES PERCENT AUTO 17.9 % (24.0-44.0); MEAN CORPUSCULAR HGB CONC 33.1 g/dl (32.0-36.0); MEAN CORPUSCULAR VOLUME 90.5 fl (83.0-99.0); MEAN PLATELET VOLUME 9.8 fl (9.4-12.3); MONOCYTES ABSOLUTE AUTO 0.9 K/mm3 (0.0-0.8); MONOCYTES PERCENT AUTO 9.4 % (0.0-8.0); NEUTROPHILS ABSOLUTE AUTO 6.3 K/mm3 (1.8-7.7); PLATELET COUNT,PLT 198 K/mm3 (150-400); RED BLOOD CELL COUNT 3.27 M/mm3 (4.10-5.30); WHITE BLOOD CELL COUNT,WBC 9.44 K/mm3 (3.9-11.3)
[2024-08-16 06:26] LABS: ANION GAP 10.6 (5-15); BUN/CREATININE RATIO 19.1 (14-18); C-REACTIVE PROTEIN 4.07 mg/dL (<0.30); CALCIUM 8.5 mg/dL (8.5-10.1); CREATININE 1.1 mg/dL (0.55-1.02); EST CRCL DRUG DOSING (CG) 27.42 mL/min; MAGNESIUM 1.8 mg/dL (1.8-2.4); POTASSIUM,K 3.6 mEq/L (3.5-5.1)
[2024-08-16] MEDS: Rosuvastatin 10 MG Tab PO SCH (09:37)
[2024-08-16] MEDS: Potassium Chloride 20 MEQ Tab.ER PO ONE (14:40)
[2024-08-16] MEDS: Magnesium Sulfat/D5W 1GM/100ML 1 GM in Premix Bag 1 BAG IV ONE (14:44)
[2024-08-16] MEDS: Lactated Ringers 1,000 ML IV SCH (16:02)
[2024-08-17 05:41] LABS: ANION GAP 13.7 (5-15); C-REACTIVE PROTEIN 2.29 mg/dL (<0.30); CALCIUM 8.7 mg/dL (8.5-10.1); CREATININE 0.9 mg/dL (0.55-1.02); EST CRCL DRUG DOSING (CG) 33.52 mL/min; MAGNESIUM 1.9 mg/dL (1.8-2.4); POTASSIUM,K 3.7 mEq/L (3.5-5.1)
[2024-08-17] MEDS: Loperamide 2 MG Cap PO ONE (13:27)
[2024-08-18 12:49] VITALS: BP 136/62; PULSE 68
== END 2024-08-18 14:39 | disposition other institution (70) | DRG 179 ==
LOC: JD.ED 15:07 → JD.MS 18:04
PROVIDERS: ADMIT Student in an Organized Health Care Education/Training Program; ATTEND Family Medicine
DX: J69.0 Pneumonitis due to inhalation of food and vomit (principal); J18.9 Pneumonia, unspecified organism; Z66 Do not resuscitate; K58.9 Irritable bowel syndrome, unspecified; E78.5 Hyperlipidemia, unspecified; H54.7 Unspecified visual loss; E78.00 Pure hypercholesterolemia, unspecified; J30.9 Allergic rhinitis, unspecified; M19.90 Unspecified osteoarthritis, unspecified site; G89.29 Other chronic pain; M81.0 Age-related osteoporosis without current pathological fracture; I10 Essential (primary) hypertension; J02.9 Acute pharyngitis, unspecified; R32 Unspecified urinary incontinence; R26.2 Difficulty in walking, not elsewhere classified; E87.6 Hypokalemia; E83.42 Hypomagnesemia; Z79.899 Other long term (current) drug therapy; Z79.82 Long term (current) use of aspirin; Z79.02 Long term (current) use of antithrombotics/antiplatelets; Z87.19 Personal history of other diseases of the digestive system; Z87.81 Personal history of (healed) traumatic fracture; Z90.89 Acquired absence of other organs; Z86.73 Personal history of transient ischemic attack (TIA), and cerebral infarction without residual deficits; Z98.49 Cataract extraction status, unspecified eye; Z79.1 Long term (current) use of non-steroidal anti-inflammatories (NSAID); Z98.890 Other specified postprocedural states; Z90.49 Acquired absence of other specified parts of digestive tract; Z98.891 History of uterine scar from previous surgery; Z90.710 Acquired absence of both cervix and uterus; Z87.891 Personal history of nicotine dependence
CPT/HCPCS: 36415; 71045; 80053; 81001; 84484; 85025; 86140; 87086; 87428; 93005; 99285; A9270; 80048; 83735; 84100; 92611-GN; 94667; 94668; 94760; 94761; 97110-GP; 97116-GP; 97162-GP; J0696; J1650; J2543; J3475; J7120; U0002